=== PATIENT | male | born 1975 | race Caucasian/White ===

== ENCOUNTER 2023-06-05 21:03 | Emergency (ER) | payer MEDICAID, SELFPAY ==
[2023-06-05] VITALS (19 sets, daily range): BP systolic 85–111; BP diastolic 55–77; PULSE 91–157; RESP 10–36; O2SAT 89–98
--- NOTE | 2023-06-05 21:14 | ED_ITS ---
HPI - General Adult General Chief complaint: Overdose Stated complaint: OVERDOSE Time Seen by Provider: 06/05/23 21:06 History of Present Illness HPI narrative: patient called EMS after he used methamphetamine for the first time in several months and started freaking out . He was brought in by EMS acutely agitated and had difficulty following commands. He denied using any other drugs. He repeatedly told EMS I think I am dying . Related Data Allergies Allergy/AdvReac Type Severity Reaction Status Date / Time No Known Allergies Allergy Verified 06/05/23 21:31 PFSH PFS Social History Smoking status: Current every day smoker Exam Narrative Exam Narrative: Nurses notes and vital signs reviewed and patient is not hypoxic. afebrile General: agitated and moderately distressed. Skin: Sweaty. Warm skin. No rash. Head: Normocephalic, atraumatic. Neck: Supple, non-tender. Eye: Pupils are equal, round and EOMI. No scleral icterus. Ears, Nose, Mouth, and Throat: Oral mucosa is dry Cardiovascular: Tachcyardia Respiratory: No accessory muscle use or respiratory distress. Lungs are clear to auscultation, no wheezing, rales or rhonchi Chest Wall: no tenderness, crepitus or subcutaneous emphysema Back: No midline thoracic or lumbar vertebral tenderness. No CVA tenderness Musculoskeletal: normal ROM, no calf or popliteal tenderness, no lower extremity edema/swelling GI: Abdomen is soft, non-distended. Normal bowel sounds. No tenderness to palpation. No rebound, guarding, or rigidity noted. Neurological: A&O x4. No cranial nerve dysfunction observed. No truncal ataxia. Moves all extremities. Sensation intact. Psychiatric: Cooperative and interactive. Normal mood and affect. Constitutional Vital Signs, click to edit/add: Last Vital Signs Pulse 113 H 06/05/23 23:40 Resp 25 H 06/05/23 23:40 BP 85/61 L 06/05/23 23:30 Pulse Ox 94 L 06/05/23 21:40 O2 Del Method Room Air 06/05/23 21:21 Course Vital Signs Vital signs: Vital Signs Blood Pressure 93/77 06/05/23 21:04 Pulse Rate 113 H 06/05/23 23:40 Respiratory Rate 25 H 06/05/23 23:40 Blood Pressure 85/61 L 06/05/23 23:30 Pulse Oximetry 94 L 06/05/23 21:40 Oxygen Delivery Method Room Air 06/05/23 21:21 Medical Decision Making MDM Narrative Medical decision making narrative: Patient was placed on satellite project site monitor and EKG obtained. Blood drawn and sent for evaluation. peripheral IV established and the patient received Versed and Haldol - we are currently out of Ativan. Patient's HR decreased and his agitation subsided. He slept for about an hour. ON waking he was calm and cooperative. His parents came to the ED and were willing to take him home. Lab Data Lab results reviewed: Yes I reviewed the patient's lab results Labs: Lab Results 06/05/23 Range/Units 21:19 WBC 11.2 H (4.0-11.0) 10^3/uL RBC 5.33 (4.70-6.10) 10^6/uL Hgb 16.7 (14.0-18.0) g/dL Hct 47.8 (42.0-54.0) % MCV 89.7 (80.0-94.0) fL MCH 31.3 (25.9-34.0) pg MCHC 34.9 (29.9-35.2) g/dL RDW 13.9 (11.0-15.0) % Plt Count 282 (150-450) 10^3/uL MPV 10.4 (9.5-13.5) fL Neut % (Auto) 66.3 (43.0-75.0) % Lymph % (Auto) 21.4 (20.5-60.0) % [place] % (Auto) 11.4 (1.7-12.0) % Eos % (Auto) 0.1 L (0.9-7.0) % Baso % (Auto) 0.4 (0.2-2.0) % Neut # (Auto) 7.4 H (1.4-6.5) 10^3/uL Lymph # (Auto) 2.4 (1.2-3.8) 10^3/uL [place] # (Auto) 1.3 H (0.3-0.8) 10^3/uL Eos # (Auto) 0.0 (0.0-0.7) 10^3/uL Baso # (Auto) 0.0 (0.0-0.1) 10^3/uL Abs Immat Gran (auto) 0.05 H (0.00-0.03) 10^3/uL Imm/Tot Granulo (auto) 0.4 (0.0-0.5) % Sodium 133 L (136-145) mmol/L Potassium 3.8 (3.5-5.1) mmol/L Chloride 96 L (98-107) mmol/L Carbon Dioxide 20.0 L (21.0-32.0) mmol/L Anion Gap 20.8 BUN 24.0 H (7.0-18.0) mg/dL Creatinine 1.67 H (0.70-1.30) mg/dL Est GFR ( Amer) 54 L (>=60) Est GFR (Non-Af Amer) 44 L (>=60) BUN/Creatinine Ratio 14.4 Glucose 170 H (74-106) mg/dL Calcium 8.8 (8.5-10.1) mg/dL Total Bilirubin 0.9 (0.2-1.0) mg/dL AST 92 H (15-37) U/L ALT 329 H (16-63) U/L Alkaline Phosphatase 44 L (46-116) U/L Total Protein 8.1 (6.4-8.2) g/dL Albumin 3.9 (3.4-5.0) g/dL Globulin 4.2 g/dL Albumin/Globulin Ratio 0.9 ECG Data Interpretation: EKG interpretation: Emergency Department physician interpretation. Sinus tachcyardia at 146pm. Normal axis, non-specific T wave changes with undulating baseline which limits ability to evaluate for ST segment elevation. Discharge Plan Discharge Chief Complaint: Overdose Clinical Impression: Methamphetamine abuse Patient Disposition: Home, Self-Care Time of Disposition Decision: 23:47 Instructions: Methamphetamine Use Disorder (ED) Stand Alone Forms: Portal Instructions Referrals: Physician,Non-Staff, [Physician] - 1 week
--- NOTE | 2023-06-05 21:15 | ECG_ITS ---
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
[2023-06-05 21:29] LABS: Basophils Percent Auto 0.4 % (0.2-2.0); Eosinophils Percent Auto 0.1 % (0.9-7.0); Hematocrit 47.8 % (42.0-54.0); Hemoglobin 16.7 g/dL (14.0-18.0); Immature Granulocytes Abs Auto 0.05 10^3/uL (0.00-0.03); Immature Granulocytes Pct Auto 0.4 % (0.0-0.5); Lymphocytes Absolute Auto 2.4 10^3/uL (1.2-3.8); Lymphocytes Percent Auto 21.4 % (20.5-60.0); Mean Corpuscular HGB Conc 34.9 g/dL (29.9-35.2); Mean Corpuscular Hemoglobin 31.3 pg (25.9-34.0); Mean Corpuscular Volume 89.7 fL (80.0-94.0); Mean Platelet Volume 10.4 fL (9.5-13.5); Monocytes Absolute Auto 1.3 10^3/uL (0.3-0.8); Monocytes Percent Auto 11.4 % (1.7-12.0); Neutrophils Absolute Auto 7.4 10^3/uL (1.4-6.5); Neutrophils Percent Auto 66.3 % (43.0-75.0); Platelet Count 282 10^3/uL (150-450); Red Blood Count 5.33 10^6/uL (4.70-6.10); Red Cell Distribution Width 13.9 % (11.0-15.0); White Blood Count 11.2 10^3/uL (4.0-11.0)
[2023-06-05] MEDS: HALOPERIDOL LACTATE 5 MG/ML VIAL IM (21:45)
[2023-06-05] MEDS: 0.9 % SODIUM CHLORIDE 1,000 ML 999 ML IV (21:45)
[2023-06-05] MEDS: MIDAZOLAM HCL 5 MG/ML VIAL IV (21:46)
[2023-06-05 21:53] LABS: Alanine Aminotransferase 329 U/L (16-63); Albumin Globulin Ratio 0.9; Albumin Level 3.9 g/dL (3.4-5.0); Alkaline Phosphatase 44 U/L (46-116); Anion Gap 20.8; Aspartate Amino Transferase 92 U/L (15-37); BUN Creatinine Ratio 14.4; Bilirubin Total 0.9 mg/dL (0.2-1.0); Calcium 8.8 mg/dL (8.5-10.1); Chloride 96 mmol/L (98-107); Estimated GFR (African America 54 (>=60); Estimated GFR (Non-African Ame 44 (>=60); Globulin 4.2 g/dL; Glucose 170 mg/dL (74-106); Potassium 3.8 mmol/L (3.5-5.1); Sodium 133 mmol/L (136-145); Total Protein 8.1 g/dL (6.4-8.2)
== END 2023-06-06 00:04 | disposition home or self-care (01) ==
PROVIDERS: Emergency Provider Emergency Medicine; PCP Family Medicine
DX: F15.10 Other stimulant abuse, uncomplicated (principal); F17.210 Nicotine dependence, cigarettes, uncomplicated
CPT/HCPCS: 36415; 80053; 85025; 93005; 96372; 96374; 99285

== ENCOUNTER 2023-11-05 07:51 | Emergency (ER) | payer MEDICAID, SELFPAY ==
[2023-11-05 07:54] VITALS: BP 150/94; PULSE 82; RESP 20; TEMP 36.5; O2SAT 98; BMI 31.0
--- NOTE | 2023-11-05 08:04 | CT_ITS ---
The [address] [address] Patient Name: RADHIKA SIMONS MRN: [id number] date: 1975 Sex: M Assigned Patient Location: ER Current Patient Location: ED.MAIN Accession/Order Number: [id number] Exam Date: 11/05/2023 08:20 Report Date: 11/05/2023 08:36 At the request of: YAW JOEL Procedure: CT abdomen pelvis wo con EXAM: CT abdomen pelvis wo con HISTORY: Right flank pain, rule out kidney stone COMPARISON: None. TECHNIQUE: Axial CT images were obtained of the abdomen and pelvis without intravenous contrast. Multiplanar reconstructions were performed. ABDOMEN/PELVIS FINDINGS: Lower Chest: Unremarkable. Liver: Normal nonenhanced appearance and contour. Biliary/Gallbladder: Unremarkable. Pancreas: Unremarkable. Spleen: Unremarkable. Adrenal Glands: Unremarkable. Kidneys: There is an intermediate density exophytic lesion arising from the lower pole of the left kidney measuring 1.5 cm. A couple of punctate nonobstructing renal calculi are present in the left kidney. Gastrointestinal/Peritoneum: No acute abnormality. The appendix is unremarkable. No free air or free fluid. Vascular: Mild scattered atherosclerotic calcifications are present. Lymph Nodes: No enlarged lymph nodes by CT size criteria. Pelvic Organs: Unremarkable. Bladder: Unremarkable. Bones: No acute osseous abnormality. Soft tissues: Unremarkable. CT/CT abdomen pelvis wo con IMPRESSION: 1. No acute abnormality of the abdomen and pelvis. 2. Punctate nonobstructing calculi present in the left kidney. 3. Small intermediate density exophytic lesion arising from the lower pole the left kidney, which is indeterminate. A proteinaceous cyst or solid lesion is possible. Electronically authenticated by: YESICA JIMÉNEZ Date: 11/05/2023 08:36
--- NOTE | 2023-11-05 08:04 | ED.GENADUL1 ---
HPI - General Adult General Chief complaint: Back Pain/Injury Stated complaint: Flank Pain- Right Time Seen by Provider: 11/05/23 07:53 Source: patient Mode of arrival: walk-in Limitations: no limitations History of Present Illness HPI narrative: 48-year-old male presents for right flank pain. It has been intermittent for a few days. He has had kidney stones before and he is concerned it could be a kidney stone again. He is also been sitting for about 3 hours a day in a drug treatment class. He requests no narcotics. No dysuria or hematuria. The pain does not radiate and its moderate Related Data Home Medications ?Medication ?Instructions ?Recorded ?Confirmed naltrexone microspheres 380 mg 380 mg IM .qmonth 11/05/23 11/05/23 intramuscular suspension,extended release (Vivitrol) Allergies Allergy/AdvReac Type Severity Reaction Status Date / Time No Known Allergies Allergy Verified 06/05/23 21:31 Review of Systems ROS Narrative A ten point review of systems is negative except as noted above. PFSH PFSH Social History Smoking status: Current every day smoker Exam Narrative Exam Narrative: Nurses note and vital signs reviewed and patient is not hypoxic. General: The patient appears well and in no apparent distress. Patient is resting comfortably on cart. Skin: Warm, dry, no pallor noted. There is no rash noted. Head: Normocephalic, atraumatic Eye: Normal conjunctiva, no drainage Ears, Nose, Mouth, and Throat: oral mucosa is moist. Nares patent. Cardiovascular: Regular Rate and Rhythm Respiratory: Patient is in no distress, no accessory muscle use, lungs are clear to auscultation, no wheezing, rales or rhonchi Back: non-tender, no CVA tenderness bilaterally to percussion. No bruise or rash on his flank. GI: Soft and nontender Musculoskeletal: The patient has no evidence of calf tenderness, no pitting edema, symmetrical pulses noted bilaterally Neurological: A&O, normal speech Psychiatric: Cooperative Constitutional Vital Signs, click to edit/add: Last Vital Signs Temp 97.7 F 11/05/23 07:54 Pulse 82 11/05/23 07:54 Resp 20 11/05/23 07:54 BP 150/94 H 11/05/23 07:54 Pulse Ox 98 11/05/23 07:54 O2 Del Method Room Air 11/05/23 07:54 Course Vital Signs Vital signs: Vital Signs Temperature 97.7 F 11/05/23 07:54 Pulse Rate 82 11/05/23 07:54 Respiratory Rate 20 11/05/23 07:54 Blood Pressure 150/94 H 11/05/23 07:54 Pulse Oximetry 98 11/05/23 07:54 Oxygen Delivery Method Room Air 11/05/23 07:54 Temperature 97.7 F 11/05/23 07:54 Pulse Rate 82 11/05/23 07:54 Respiratory Rate 20 11/05/23 07:54 Blood Pressure 150/94 H 11/05/23 07:54 Pulse Oximetry 98 11/05/23 07:54 Oxygen Delivery Method Room Air 11/05/23 07:54 Medical Decision Making MDM Narrative Medical decision making narrative: CT scan shows punctate stone in the left kidney as well as a cyst and these findings were discussed with the patient. My clinical impression at this point is that this is muscular pain. Treatment diagnosis and follow-up were discussed with the patient. Differential Diagnosis Differential Diagnosis: Kidney stone, muscle pain Lab Data Lab results reviewed: Yes I reviewed the patient's lab results Labs: Lab Results 11/05/23 Range/Units 08:00 Urine Color Dk. yellow (YELLOW) Urine Clarity Clear (CLEAR) Urine pH 6.5 (5.0-9.0) Ur Specific [place] 1.025 (1.005-1.025) Urine Protein Negative (NEG/TRACE) mg/dL Urine Glucose (UA) Negative (NEGATIVE) mg/dL Urine Ketones Trace A (NEGATIVE) mg/dL Urine Occult Blood Negative (NEGATIVE) Urine Nitrite Negative (NEGATIVE) Urine Bilirubin Negative (NEGATIVE) Urine Urobilinogen 1.0 (0.2-1.0) EU/dL Ur Leukocyte Esterase Negative (NEGATIVE) Urine RBC None seen (0-2) #/HPF Urine WBC 0-2 A (NONE SEEN) #/HPF Ur Squamous Epith Cells Few A (NONE/RARE) #/LPF Urine Bacteria None seen (NONE SEEN) #/HPF Urine Mucus Large A (NONE SEEN) Imaging Data CT scan - abdomen: Radiologist's impression: ITS Impressions Abdomen/Pelvis CT 11/05/23 08:04 IMPRESSION: 1. No acute abnormality of the abdomen and pelvis. 2. Punctate nonobstructing calculi present in the left kidney. 3. Small intermediate density exophytic lesion arising from the lower pole the left kidney, which is indeterminate. A proteinaceous cyst or solid lesion is possible. Electronically authenticated by: YESICA JIMÉNEZ Date: 11/05/2023 08:36 Discharge Plan Discharge Stand Alone Forms: Portal Instructions Chief Complaint: Back Pain/Injury Clinical Impression: Acute right flank pain Patient Disposition: Home, Self-Care Time of Disposition Decision: 08:43 Condition: Good Mode of Transportation: Private Vehicle Prescriptions / Home Meds: No Action Vivitrol 380 mg suspension,extended rel recon 380 mg IM .qmonth Print Language: [place] Instructions: Flank Pain (ED) Referrals: DEMIAN ORTEGA [Primary Care Provider] - 1 week
--- OUTSIDE RECORDS SUMMARY | 2023-11-05 08:04 | XMS_ITS | CCD ---
Author Organization [facility] Care Team Providers Care Pulp Mixer Name Role Phone No, Physician Unavailable Unavailable NO FAMILY DOCTOR Unavailable Unavailable EMR, SPL Unavailable Unavailable NO FAMILY DOCTOR Unavailable Unavailable JUDY GRAHAM Unavailable Unavailable [facility] Unavailable Unavail able NO FAMILY DOCTOR Unavailable Unavailable TILA LOUISE Unavailable Unavailable UNKNOWN, PCP Unavailable Unavailable NO FAMILY DOCTOR Unavailable Unavailable ELENA WOOD Unavailable Unavailable [facility] Unavailable Unavail able NO, PHYSICIAN Unavailable Unavailable AB FONSECA Unavailable UnavailTY Cortez Unavailable Unavailable NO, PHYSICIAN Unavailable Unavailable SHANNON BARRIOS Primary Care Unavailable TY MOYER Admitting Unavailable TY MOYER Attending Unavailable ILIR CHANEY Consulting Unavailable TY MOYER Consulting Unavailable MISC, DOCTOR Admitting Unavailable MISC, DOCTOR Attending Unavailable Deacon Diane Primary Care Physician Deacon Diane Attending Unavailable Deacon Diane Attending Unavailable Deacon Diane Attending Unavailable Andry BYRNE Attending Unavailable Deacon Diane Admitting Unavailable Deacon Diane Attending Unavailable Deacon Diane Referring Unavailable Renuka AHN Attending Unavailable Nnamdi Fountain Attending Unavailab Nnamdi Taylor Admitting Unavailab le [facility], Services Primary Care Unavaila ble Allergies Allergy Classification Reported Allergen(s) Allergy Type Date of Onset Reaction(s) Facility (3 sources) QUEtiapine; Translations: [QUETIAPINE] Propensity to adverse reactions to drug 8 Palpitations [id number] Work Phone: (1 source) QUEtiapine Drug Allergy 4 [facility] Repository Medications Current Medications Medication Drug Class(es) Dates Sig (Normalized) Sig (Original) phenytoin sodium 100 mg extended release oral capsule (1 source) Anti-epileptic Agent Start: 09-14-2017 End: 10-14-2017 take 3 capsules by mouth once daily phenytoin (DILANTIN EXTENDED) 100 MG ER capsule Take 3 (three) capsules (300 mg total) by mouth daily. 90 capsule 0 09/14/2017 10/14/2017 Active polyethylene glycol 3350 111431 mg / potassium chloride 1480 mg / sodium bicarbonate 5720 mg / sodium chloride 04000 mg powder for oral solution (1 source) Osmotic Laxative Start: 03-22-2023 NuLYTELY [place] oral powder for reconstitution See Instructions, 1 EA, Refill(s) 0, Prior to colonoscopy., [facility]/pharmacy #[id number], 182, cm, 03/21/23 14:50:00 EDT, Height/Length Dosing, 108, kg, 03/21/23 14:50:00 EDT, Weight Dosing Start Date: 03/22/23 Status: Ordered Completed/Discontinued Medications Medication Drug Class(es) Dates Sig (Normalized) Sig (Original) fosphenytoin PE (CEREBYX) 1,000 mg in sodium chloride 0.9 % (NS) 100 mL IVPB 1,000 mg, Intravenous, at 600 mL/hr, Once, 09/14/17 at 2155, For 1 dose, Do not infuse > 150 mg PE/min. New Bag 09/14/2017 22:20 EST 1,000 mg 600 mL/hr (1 source) Start: 09-14-2017 End: 09-14-2017 take 1000 mg intravenous route every hour, then take 150 mg intravenous route fosphenytoin PE (CEREBYX) 1,000 mg in sodium chloride 0.9 % (NS) 100 mL IVPB 1,000 mg, Intravenous, at 600 mL/hr, Once, 09/14/17 at 2155, For 1 dose, Do not infuse > 150 mg PE/min. New Bag 09/14/2017 22:20 EST 1,000 mg 600 mL/hr Problems Active Problems Problem Classification Problem Date Documented Date Episodic/Chronic Anxiety disorders (4 sources) Panic disorder [episodic paroxysmal anxiety]; Translations: [Anxiety] Onset: 07-11-2017 03-07-2023 Chronic Attention-deficit, conduct, and disruptive behavior disorders (3 sources) Attention deficit hyperactivity disorder 03-07-2023 Chronic Epilepsy; convulsions (4 sources) Epilepsy, unspecified, not intractable, without status epilepticus; Translations: [EPILEPSY UNS NOT INTRACT W/O SE] Onset: 07-21-2018 Chronic Essential hypertension (4 sources) Essential (primary) hypertension; Translations: [Essential hypertension] Onset: 07-11-2017 03-07-2023 Chronic Headache; including migraine (3 sources) Headache 03-07-2023 Episodic Hepatitis (2 sources) Chronic hepatitis C 03-11-2023 Chronic Hepatitis (2 sources) Viral hepatitis C; Translations: [Unspecified viral hepatitis C without hepatic coma] Onset: 03-21-2023 03-07-2023 Episodic Mood disorders (6 sources) Bipolar I disorder; Translations: [Single episode of major depression in full remission] 03-07-2023 Chronic Residual codes; unclassified (3 sources) Sleep disorder 03-07-2023 Episodic Substance-related disorders (13 sources) Other psychoactive substance use, unspecified, uncomplicated; Translations: [Nicotine dependence, unspecified, uncomplicated] Onset: 04-10-2017 03-07-2023 Chronic Comment on above: Added secondary to d ocumentation in Social History. Substance-related disorders (1 source) Opioid dependence with withdrawal; Translations: [OPIOID DEPENDENCE WITH WITHDRAWAL] Onset: 08-16-2017 Unclassified (2 sources) Conversion disorder with seizures or convulsions; Translations: [Conversion disorder with seizures or convulsions] Onset: 11-02-2017 Chronic Unclassified (2 sources) Patient encounter status 03-21-2023 Past or Other Problems Problem Classification Problem Date Documented Date Episodic/Chronic Epilepsy; convulsions (3 sources) Unspecified convulsions; Translations: [UNSPECIFIED CONVULSIONS] Onset: 08-16-2017 Episodic Nausea and vomiting (1 source) Nausea with vomiting, unspecified; Translations: [NAUSEA WITH VOMITING, UNSPECIFIED] Onset: 08-16-2017 Episodic Nonspecific chest pain (2 sources) Chest pain, unspecified; Translations: [Other chest pain] Onset: 07-11-2017 Episodic Other aftercare (1 source) Other retirement (current) drug therapy; Translations: [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] Onset: 07-23-2018 Episodic Other connective tissue disease (2 sources) Other specified soft tissue disorders; Translations: [OTHER SPECIFIED SOFT TISSUE DISORDERS] Onset: 04-08-2017 Episodic Other screening for suspected conditions (not mental disorders or infectious disease) (4 sources) Culture positive for methicillin resistant Staphylococcus aureus; Translations: [Screening for malignant neoplasm of colon done] Onset: 04-10-2019 04-14-2019 Episodic Comment on above: MRSA scant amout L r ing finger wound 04/10/19 Skin and subcutaneous tissue infections (3 sources) Cellulitis of right lower limb; Translations: [Cutaneous abscess of right lower limb] Onset: 04-10-2017 Episodic Unclassified (3 sources) Procedure and treatment not carried out due to patient leaving prior to being seen by health care provider; Translations: [Patient's other noncompliance with medication regimen] Onset: 04-08-2017 Episodic Results Test Name Value Interpretation Reference Range Facility Longterm Documentson 07-29-2023 Longterm Documents Longterm Nurse Visit 14 day Health Appraisal Date of Appraisal: 07/28/23 Booked Date: 07/25/23 Court or Release Date: unknown Did inmate come from another facility: no PCP: Dr. Diane Specialist: none Pharmacy: none Have you ever had suicide attempts: no If yes, when was your last attempt and how: n/a Are you currently under the care of a practitioner for any reason: Wellness, hep c If yes, please explain: see above Date Receiving Screen Evaluation Form reviewed: 07/25/23 Date Suicide Prevention Health Form reviewed: 07/25/23 Has the sick call procedure has been explained: yes Does Inmate verbalize understanding: yes Do you or have you ever had any of the following: Recent Head Injury: no Persistent Headaches: no just sporadic Vertigo/Dizziness/ Fainting: no Stroke/TIA: no Seizure Disorder: no Eye/Vision Problems: wears glasses Ear/Nose/Throat Problems: no Dental Problems: ,issing a few Problems Breathing/ Asthma: no Genitourinary Problems: shy bladder per inmate Diabetes: no Gastrointestinal Issues: no High/Low Blood Pressure: no Heart Problems: no Recent Broken Bones or deformities: no Arthritis/ Joint Mobility Issues or Deformities: no Back/Neck Problems: back pain Skin Problems, Rashes, Open Wounds: no STDs (recent, past, or present): no Hepatitis Positive: Hep C HIV Positive: no Bleeding/Other Blood Disorder: no Body Infestation (Lice, Crabs, Scabies, Etc): no Do you have a history of: Violence towards others: no Being victimized: no Being sexually assaulted: no Sexually assaulting others: no Is this person obviously a higher risk for victimization or assault: o How does the patient identify him/herself in terms of gender: male SKIN: Warm, dry and intact Skin Color: WNL for ethnicity Turgor: WNL Bruises: no Wound/Lesions: no Rash: no Jaundice: no Edema: no Clarify and describe: n/a Is Physical Therapy needed: no CARDIOVASCULAR: Sinus Rythym Arrhythmia: no Chest Pain: no Clarify yes response: n/a RESPIRATORY: WNL Dyspnea: no Cough: no Clarify yes response: n/a [Mental Status Exam] TB Skin Test Have you ever had tuberculosis: no Have you ever had a positive TB skin test: no PPD given on: Location given: _ forearm Date vial opened: _ Lot number: _ Expiration date: _ PPD Comments: _ Inmate states they have had the following Immunizations: See immunizatiuon records Inmate tested positive for the following drugs: Methamphetamine (MET/mAMP) Ecstasy (MDMA) Marijuana (THC) Have you ever had seizures or other symptoms of withdrawal after stopping the use of alcohol/drugs? no Do you wish to attend AA Meetings? Yes Longterm Assessment 07/28/23 18:51:00 Longterm Assessment Entered On: 07/28/2023 18:53 EST Performed On: 07/28/2023 18:51 EST by Adela Reyes LPN Covid-19, MERS, Ebola Screen *Contact With Person With Highly Contagious Disease Like Ebola/MERS/COVID-19 AND Have One or More of the Symptoms Below : No *Travel to a Country With Wide-Spread Ebola/MERS/COVID-19 in the Past 21 Days AND Have One or More of the Symptoms Below : No Patient Reported Covid-19 Testing : No *Verify Droplet, Contact Precautions for Ebola (Reference for CDC) : N/A *Verify Airborne, Droplet Precautions for MERS/COVID-19 : N/A Adela Reyes LPN D - 07/28/2023 18:51 EST Summary Chief Complaint : Health appraisal Preferred Lab : [facility] Preferred Rad : [facility] Height in Inches : 73 in Height/Length Measured : 186 cm(Converted to: 6 ft 1 in, 73.23 in) Weight Measured : 88 kg(Converted to: 194 lb 0 Ounces, 194.007 lb) Body Mass Index Measured : 25.44 kg/m2 Change in Weight : -20 Weight in Pounds : 193.6 lb Ht/Wt Measurement Refused by Patient? : No Change in Weight (pounds) : -44 Systolic Blood Pressure : 138 mmHg Diastolic Blood Pressure : 78 mmHg Blood Pressure Location : Left arm Blood Pressure Position : Sitting O2 Sat Resting/Exertion Alpha : Resting Peripheral Pulse Rate : 112 bpm (HI) Respiratory Rate : 18 br/min SpO2 : 99 % Temperature Oral : 36.7 DegC(Converted to: 98.1 DegF) Pain Present : No actual or suspected pain Adela Reyes LPN D - 07/28/2023 18:51 EST Objective Data and Cognition Screening Cognition: Oriented To : Person, Place, Time Lvl of Consciousness : Alert Cognition: Speech : Rambling Cognition: Behavior : Cooperative Cognition: Hallucinations : N/A Cognition: Mood and Affect : Anxious Adela Reyes LPN D - 07/28/2023 18:51 EST Problem List/Past Medical History Ongoing ADHD Anxiety Bipolar 1 disorder Chronic hepatitis C without hepatic coma Headache Heroin use disorder, mild, in sustained remission, abuse Major depressive disorder with single episode, in full remission Methamphetamine abuse in remission MRSA (methicillin resistant staph aureus) culture positive Primary hypertension (more content not included)... Normal [facility] Provider Letteron 05-21-2023 Provider Letter (Inserted Image. Amelia ble to display) May 21, 2023 RADHIKA SIMONS [address] [place] [id number] : 1975 To Whom It May Concern, Please excuse above patient from work. Date of Illness: From: 05.13.2023 To: 05.22.2023 May Return to Work On: 05.23.2023 Sincerely, Dr. Deacon Diane MD Family [address] [address] Normal [facility] Ambulatory Visit Summaryon 0 05-16-2023 Ambulatory Visit Summary RADHIKA SIMONS :1975 Visit Date:05/16/2023 Ambulatory Visit Instructions Your Diagnosis COVID Your Care Team Attending Physician - Deacon Diane MD Primary Care Physician - Deacon Diane MD This Is Your Medications List Contact prescribing physician if questions or concerns polyethylene glycol 3350 with electrolytes (NuLYTELY [place] oral powder for reconstitution) Procedures Performed EGD (esophagogastroduodenoscopy) and closure of duodenal fistula, Excision of cyst, Excision of cyst. Discharge Vitals Heart Rate (Peripheral) 110 Respiratory Rate 22 Blood Pressure 110/80 Height 182 cm Weight 108 kg BMI 32.6 Medications What How Much When Instructions Unchanged polyethylene glycol 3350 with electrolytes (NuLYTELY [place] oral powder for reconstitution) See instructions Prior to colonoscopy. Contact prescribing physician if questions or concerns Allergies No Known Allergies Problems Ongoing - Any problem that you are currently receiving treatment for. ADHD Anxiety Bipolar 1 disorder Chronic hepatitis C without hepatic coma Headache Heroin use disorder, mild, in sustained remission, abuse Major depressive disorder with single episode, in full remission Methamphetamine abuse in remission MRSA (methicillin resistant staph aureus) culture positive Primary hypertension Screen for colon cancer Sleep disorder Smoker Normal [facility] Family Medicine Office/Clini c Noteon 05-16-2023 Family Medicine Office/Clinic Note HPI Staff Radhika is a 47 year old male presenting for follow up for htn and depression patient had called yesterday for a work excuse for 05/13-05/15 for fever, fatigue, runny nose, dry cough to be discussed at this visit per Dr Diane Still feels lousy, took to room and did covid test + results History of Present Illness - Pt here for follow up but has a positive covid test. - SOB, Fever Physical Exam Vitals & Measurements HR: 110(Peripheral) RR: 22 BP: 110/80 SpO2: 96% HT: 182 cm WT: 108 kg BMI: 32.6 General: alert, no acute distress ENMT: oral mucosa moist, Cardiovascular: Tachycardic normal peripheral perfusion Respiratory: Lungs CTA, respirations non labored increased RR Extremities: no deformity, no trauma Neurological: oriented x 4, LOC appropriate for age, CN II-XII intact, motor strength equal & normal bilaterally, speech normal Abdomen: Soft, Nontender, Non-distended, + BS Assessment/Plan 1. COVID (U07.1: COVID-19) - With Dizziness, Tachycardia, I will send to ER for hydration. - Precautions discussed in detail. - Will follow up after. Ordered: Rapid COVID POC [id number] Follow-up No qualifying data available Problem List/Past Medical History Ongoing ADHD Anxiety Bipolar 1 disorder Chronic hepatitis C without hepatic coma Headache Heroin use disorder, mild, in sustained remission, abuse Major depressive disorder with single episode, in full remission Methamphetamine abuse in remission MRSA (methicillin resistant staph aureus) culture positive Primary hypertension Screen for colon cancer Sleep disorder Smoker Historical No qualifying data Procedure/Surgical History EGD (esophagogastroduodenoscopy) and closure of duodenal fistula, Excision of cyst, Excision of cyst. Medications NuLYTELY [place] oral powder for reconstitution, See Instructions Allergies No Known Allergies Social History Alcohol - Denies Alcohol Use, 07/23/2018 Substance Abuse - High Risk, 07/23/2018 Past, Heroin, Methamphetamines, 04/10/2019 Heroin, Marijuana, Methamphetamines, 1-2 times per week, Ready to change: No., 07/23/2018 Tobacco - High Risk, 07/23/2018 10 or more cigarettes (1/2 pack or more)/day in last 30 days Tobacco Use:. Cigarettes, Ready to change: No. Household tobacco concerns: No., 03/21/2023 Cigarettes, 04/10/2019 Family History Hypertension: Father. Hypothyroidism: Mother. Immunizations Vaccine Date Status Comments influenza virus vaccine, inactivated 07/26/2022 Recorded SARS-CoV-2 (COVID-19) mRNA-1273 vaccine 07/06/2021 Recorded 2023-03-07: TPV11 SARS-CoV-2 (COVID-19) mRNA-1273 vaccine 12/07/2020 Recorded SARS-CoV-2 (COVID-19) mRNA-1273 vaccine 11/09/2020 Recorded hepatitis A adult vaccine 02/03/2019 Recorded pneumococcal 13-valent vaccine 08/19/2011 Recorded influenza virus vaccine, inactivated 05/07/2011 Recorded Lab Results Ambulatory Point of Care Results Rapid Covid POC: Positive (05/16/23 14:27:00) Normal [facility] Comment on above: Result Comment: Elec tronically Signed By: Morgan ANN, Deacon Fair.br\Date and Time Signed: 05/16/23 14:55 EDT Consent for Procedure/Surger yon 03-25-2023 Consent for Procedure/Surgery [id number]:127 Normal [facility] Insurance Correspondenceon 0 03-25-2023 Insurance Correspondence [id number]:127 Normal [facility] Gastroenterology Office/Clin ic Noteon 03-22-2023 Gastroenterology Office/Clinic Note Chief Complaint ref by morgan- hep C HPI Staff Patient is a 47 year old male who was referred by Morgan for Hepatitis C w/o coma. Hx of heroin, methamphetamine and marijuana use. Labs completed 03/07/23. No previous Fibro/EGD/imaging. History of Present Illness Radhika Simons is a 47-year-old white male who was referred to me by Dr. Field for chronic hepatitis C. He was diagnosed with hepatitis C in 2018 or 2019. He quit using drugs before he went to [facility]. He was getting treatment and counseling with [facility]. He last used street drugs in 05/2019. He has been tested for hepatitis B and HIV in 2019 when he went to [facility], and it was negative. Review of Systems PHQ Score Initial Depression Screen Score: 0 Constitutional: no fever, no chills, no sweats, no weakness Skin: no Jaundice, no rash, no lesions, no petechiae ENMT: no ear pain, no sore throat, no congestion, no hoarseness Respiratory: no shortness of breath, no cough, no orthopnea, no wheezing Cardiovascular: no chest pain, no palpitations, no edema Gastrointestinal: no nausea, no vomiting, no diarrhea, no constipation, no GI bleeding, no abdominal pain, no dysphagia, no bloating, no heartburn Genitourinary: no dysuria, no hematuria, no discharge, no pain Musculoskeletal: no back pain, no trauma Neurologic: no numbness, no sleeping problems Additional ROS info: Except as noted in the above Review of Systems and in the History of Present Illness all other systems have been reviewed and are negative or noncontributory. Physical Exam Vitals & Measurements T: 36.3 ?C(Temporal Artery) HR: 90(Peripheral) RR: 16 BP: 113/78 HT: 72 in HT: 182 cm WT: 108 kg WT: 237.6 lb BMI: 32.6 Constitutional: Appearance: well developed Skin: Inspection: no rashes, ulcers, icterus, or telangiectasias. Eyes: Conjunctivae/lids: normal conjunctivae and lids. ENMT: Hearing: within normal limits. Lips/Teeth/Gums: normal oral mucosa Neck: Neck: normal motion, central trachea Respiratory: Percussion: thorax normoresonant. Auscultation: normal breath sounds; no rubs, wheezes, rale or rhonchi. Cardiovascular: Auscultation: normal rhythm, S1 and S2; no rubs, murmurs, or gallop. Peripheral: no edema Gastrointestinal/Abdomen: Abdomen: normal consistency and bowel sounds; no tenderness or masses. Liver/Spleen: normal size and consistency, not palpable. Rectal: deferred Musculoskeletal: Gait/Station: normal gait Assessment/Plan 1. Hepatitis C (B19.20: Unspecified viral hepatitis C without hepatic coma) The patient required hepatitis C through IV drugs. He has been clean since 2019. I will proceed with hepatitis C viral load genotype. We will rule out hepatitis B and HIV. We will assess fibrosis score with a FibroScan. 2. Screen for colon cancer (Z12.11: Encounter for screening for malignant neoplasm of colon) We will proceed with a screening colonoscopy. Portions of this record may have been created with voice recognition artificial intelligence software, specifically [employer], [employer] and or [employer]. Substitutions may have occurred voice recognition and artificial intelligence software. ATTESTATION: Documentation services were performed after patient or guardian consented to allow [employer] to record this visit. SURYA medication specialist and provider reviewed before signing. SURYA: Yaritza Bianes. Follow-up No qualifying data available Problem List/Past Medical History Ongoing ADHD Anxiety Bipolar 1 disorder Chronic hepatitis C without hepatic coma Headache Heroin use disorder, mild, in sustained remission, abuse Major depressive disorder with single episode, in full remission Methamphetamine abuse in remission MRSA (methicillin resistant staph aureus) culture positive Primary hypertension Screen for colon cancer Sleep disorder Smoker Historical No qualifying data Procedure/Surgical History EGD (esophagogastroduodenoscopy) and closure of duodenal fistula, Excision of cyst, Excision of cyst. Medications No active medications Allergies No Known Allergies Social History Alcohol - Denies Alcohol Use, 07/23/2018 Substance Abuse - High Risk, 07/23/2018 Past, Heroin, Methamphetamines, 04/10/2019 Heroin, Marijuana, Methamphetamines, 1-2 times per week, Ready to change: No., 07/23/2018 Tobacco - High Risk, 07/23/2018 10 or more cigarettes (1/2 pack or more)/day in last 30 days Tobacco Use:. Cigarettes, Ready to change: No. Household tobacco concerns: No., 03/21/2023 Cigarettes, 04/10/2019 Family History Hypertension: Father. Hypothyroidism: Mother. Immunizations Vaccine Date Status Comments influenza virus vaccine, inactivated 07/26/2022 Recorded SARS-CoV-2 (COVID-19) mRNA-1273 vaccine 07/06/2021 Recorded 2023-03-07: TPV11 SARS-CoV-2 (COVID-19) mRNA-1273 vaccine 12/07/2020 Recorded SARS-CoV-2 (COVID-19) mRNA-1273 vaccine 11/09/2020 Recorded hepatitis A adult vaccine 02/03/2019 Recorded (more content not included)... Normal [facility] Comment on above: Result Comment: Elec tronically Signed By: Yaritza Reyes\.br\Date and Time Signed: 03/21/23 19:33 EDT\.br\Electronically Co-Signed By: Renuka AHN MD\.br\Date and Time Co-Signed: 03/22/23 13:33 EDT Ambulatory Visit Summaryon 0 03-21-2023 Ambulatory Visit Summary RADHIKA SIMONS :1975 Visit Date:03/21/2023 Ambulatory Visit Instructions Your Diagnosis Hepatitis C Screen for colon cancer Your Care Team Attending Physician - Renuka AHN MD Primary Care Physician - Deacon Diane MD Referring Physician - Deacon Diane MD Procedures Performed EGD (esophagogastroduodenoscopy) and closure of duodenal fistula, Excision of cyst, Excision of cyst. Discharge Vitals Temperature (Temporal Artery) 36.3 ?C Heart Rate (Peripheral) 90 Respiratory Rate 16 Blood Pressure 113/78 Height 182 cm Height 72 in Weight 108 kg Weight 237.6 lb BMI 32.6 What to do next Scheduled Follow-Up Appointments Saturday 9:00 AM EDT With: Where: [facility] 2022 8:40 AM EDT With: Morgan ANN, Deacon Singh Where: [facility] .HCV RT-PCR, Quant (Non-Grap h)on 03-12-2023 Diagnostic impression Molgen Kahlil (Unsp spec) [Interp] Comment Invalid Interpretation Code [facility] Comment on above: Result Comment: Posi tive HCV antibody screen with the presence of HCV RNA is consistent with active infection. Performed at: [facility] [id number] MD Anish De La Rosa Performed By: #### 2 [id number] ####[facility] [id number] [place] [address] HCV RNA NEFTALI+probe [Log units/Vol] 6.859 Invalid Interpretation Code [facility] Comment on above: Performed By: #### 2 [id number] ####[facility] [id number] [place] [address] HCV RNA NEFTALI+probe Qn [id number] International_Unit/mL Invalid Interpretation Code [facility] Comment on above: Performed By: #### 2 [id number] ####[facility] [id number] [place] [address] Reference Lab Test Reference Range Comment Invalid Interpretation Code [facility] Comment on above: Result Comment: The quantitative range of this assay is 15 IU/mL to 100 million IU/mL. Performed By: #### 2 226162, [id number], [id number], 8290499, 85150139, 5916890 ####[facility] [address] [place] [address] HCV Antibody RFX to Quant PC Damon 03-12-2023 HCV IgG IA Ql Reactive Abnormal Non Reactive [facility] Comment on above: Order Comment: Test requires 2 tubes, sent 1 SST and 1 EDTA Plasma pour-off Result Comment: Perf ormed at: [facility] [address] [id number] PhD Remy Adams Performed By: #### 2 378513, [id number], [id number], 2316340, 40045943, 4011222 ####[facility] [address] [place] [address] Family Medicine Office/Clini c Noteon 03-11-2023 Family Medicine Office/Clinic Note Chief Complaint esablish care HPI Staff Radhika is a 47 year old male patient presenting to the office to establish care. Establish Care: History: Hep C, depression Any previous diagnosis: History of seeing any specialist: neurologist in past ? aneurysm When was your last doctors visit: just out of fdc, was monitored there Last provider: Any recent labs: in the fdc jair blood every 6 months ayan: 14 Health Maintenance UTD: Colonoscopy: none PSA: never covid UTD Acute: Current issues/complaints: lots to discuss, just out of fdc past drug abuse and he's clean and sober wants to get his health in order. Found small anuerysm in back of head, been monitoring with scan every 6 months. Lots of anxiety, wearing an ankle monitor History of Present Illness Radhika Simons is a 47-year-old male who presents today to establish care. The patient states that he recently came out from fdc. He states that the last 8 years in his life, he has been addicted to drugs and alcohol. He has used heroin and methamphetamine before. Currently, he has been sobered for 4 years since he was in fdc. He was put on Vivitrol. He contracted hepatitis C. He undergone liver scans, ultrasounds, and urine tests for the insurance company before he got medicated, to show them that he was being serious. He was sentenced to fdc. He was monitored in fdc to make sure his levels did not go up. He states that he is doing great. He just got his own place. He got a job at [employer]. He loves it. He was not thinking about doing it when he was in fdc because being there was enough to make him not want to go back. He got . That was one of the reasons he gave up on life. He is happy and blessed to be here right now because there are a lot of people out here that are not making it. He has a sponsor. He goes to the [employer] 3 times a month until 04/2023. He is limited to what he can do, but he is allowed to go up there. He is going up there tonight to see a counselor at [facility]. He reports he has bumps on his stomach but does not hurt. He has had a history of cysts in his skin before. He had them removed from his face. His blood pressure is slightly elevated today. He thinks this is due to being anxious. He did not smoke cigarettes the whole time he was in fdc but when he came back from fdc, he was smoking more than he ever has. He smokes an average of 1 pack a day. He has gained a lot of weight. Before he got a job and started getting active again, he was sitting at home binge watching any channel. He also stopped drinking coffee when he was in fdc, but when he got home, he drank too much coffee again. Physical Exam Vitals & Measurements T: 37.0 ?C(Oral) HR: 90(Peripheral) RR: 16 BP: 142/90 SpO2: 95% HT: 72 in HT: 182.88 cm WT: 112.2 kg WT: 246.84 lb BMI: 33.55 General: alert, no acute distress ENMT: oral mucosa moist, no pharyngeal erythema or exudate Cardiovascular: regular rate and rhythm, normal peripheral perfusion Respiratory: Lungs CTA, respirations non labored Extremities: no deformity, no trauma Neurological: oriented x 4, LOC appropriate for age, CN II-XII intact, motor strength equal & normal bilaterally, speech normal Assessment/Plan 1. Primary hypertension (I10: Essential (primary) hypertension) The patient has never been diagnosed with this before. I do believe he is working towards his diagnosis, but we will recheck him in 2 to 3 weeks. If his blood pressure is still elevated, we will start medication at that time. 2. Major depressive disorder with single episode, in full remission (F32.5: Major depressive disorder, single episode, in full remission) The patient is doing very well since being out of fdc. The patient is on no medication at this time. His AYAN is elevated at 14. Otherwise, he is doing well. We will start addressing this moving forward. 3. BMI 33.0-33.9,adult (Z68.33: Body mass index [BMI] 33.0-33.9, adult) BMI education given. 4. Class 1 obesity due to excess calories in adult (E66.09: Other obesity due to excess calories) As above. 5. Smoker (F17.200: Nicotine dependence, unspecified, uncomplicated) Encouraged the patient to slowly cut down on his smoking. His goal is to be less than half a pack in the next 2 to 3 weeks. If the patient is struggling, we will look at other medications to help him with this. 6. Heroin use disorder, mild, in sustained remission, abuse (F11.11: Opioid abuse, in remission) Encouraged that the patient is in remission. We will continue to have the patient in helping the patient stays in remission. 7. Methamphetamine abuse in remission (F15.11: Other stimulant abuse, in remission) Encouraged the patient to continue to be in remission. If he needs any help, we will continue to help him with this. 8. Hepatitis C infection (B19.20: Unspecified viral hepatitis C without hepatic coma) We are going to recheck his hepatitis C antibodies with reflex to PCR. We (more content not included)... Normal [facility] Comment on above: Result Comment: Elec tronically Signed By: Deacon Daine MD\.br\Date and Time Signed: 03/11/23 11:03 EDT\.br\Electronically Co-Signed By: Ivana Gandara\.br\Date and Time Co-Signed: 03/07/23 14:11 EDT Ambulatory Visit Summaryon 0 03-07-2023 Ambulatory Visit Summary RADHIKA SIMONS :1975 Visit Date:03/07/2023 Ambulatory Visit Instructions Your Diagnosis Primary hypertension Major depressive disorder with single episode, in full remission BMI 33.0-33.9,adult Class 1 obesity due to excess calories in adult Smoker Heroin use disorder, mild, in sustained remission, abuse Methamphetamine abuse in remission Hepatitis C infection Your Care Team Attending Physician - Deacon Diane MD Primary Care Physician - Deacon Diane MD Procedures Performed EGD (esophagogastroduodenoscopy) and closure of duodenal fistula, Excision of cyst, Excision of cyst. Discharge Vitals Temperature (Oral) 37.0 ?C Heart Rate (Peripheral) 90 Respiratory Rate 16 Blood Pressure 142/90 Height 182.88 cm Height 72 in Weight 112.2 kg Weight 246.84 lb BMI 33.55 What to do next Scheduled Follow-Up Appointments 2022 8:40 AM EDT With: Deacon Diane MD Where: [facility] Normal [facility] Auto Diffon 03-07-2023 Basophils/100 WBC (Bld) 0.6 % Normal 0.0-2.0 [facility] Comment on above: Order Comment: Order Added by Discern Expert. Performed By: #### 2 706477, [id number], [id number], 3332249, 27907194, 5878822 ####[facility] [address] [place] [address] Basophils/Leukocyte s Auto (Bld) [Pure # fraction] 0.0 E9/L Normal 0.0-0.2 [facility] Comment on above: Order Comment: Order Added by Discern Expert. Performed By: #### 2 771246, [id number], 7338536098, 6379398, 63134205, 0591110 ####[facility] [address] [place] [address] Eosinophils/100 WBC (Bld) 0.0 % Normal 0.0-8.0 [facility] Comment on above: Order Comment: Order Added by Discern Expert. Performed By: #### 2 550031, [id number], 8807026625, 8146802, 00952513, 1344593 ####[facility] [address] [place] [address] Eosinophils/Leukocy branden Auto (Bld) [Pure # fraction] 0.0 E9/L Normal 0.0-0.5 [facility] Comment on above: Order Comment: Order Added by Discern Expert. Performed By: #### 2 671688, [id number], 0923856241, 0882676, 15165669, 5603942 ####[address] [address] Lymphocytes/100 WBC (Bld) 27.2 % Normal 14.0-50.0 [facility] Comment on above: Order Comment: Order Added by Discern Expert. Performed By: #### 2 449478, 2940628376, 8576614673, 5552754, 04872467, 3161660 ####[address] [address] Lymphocytes/Leukocy branden Auto (Bld) [Pure # fraction] 1.7 E9/L Normal 1.0-4.0 [facility] Comment on above: Order Comment: Order Added by Discern Expert. Performed By: #### 2 880799, 4118350926, 2453229929, 4003199, 56225316, 4241404 ####[address] [address] Monocytes/100 WBC (Bld) 8.5 % Normal 4.0-14.0 [facility] Comment on above: Order Comment: Order Added by Discern Expert. Performed By: #### 2 852524, 8644280852, 7178549587, 7451184, 01886665, 9793934 ####[address] [address] Monocytes/Leukocyte s Auto (Bld) [Pure # fraction] 0.5 E9/L Normal 0.2-1.0 [facility] Comment on above: Order Comment: Order Added by Discern Expert. Performed By: #### 2 856458, [id number], 9706023155, 3751316, 77662626, 6803397 ####[address] [place] [address] Neutrophils/100 WBC (Bld) 63.7 % Normal 36.0-75.0 [facility] Comment on above: Order Comment: Order Added by Discern Expert. Performed By: #### 2 774263, 7776841604, 4378091829, 3847315, 16571223, 7695213 ####[address] [address] Neutrophils/Leukocy branden Auto (Bld) [Pure # fraction] 4.1 E9/L Normal 2.0-7.5 [facility] Comment on above: Order Comment: Order Added by Discern Expert. Performed By: #### 2 783250, 4274486805, 5444659414, 8801270, 92710062, 6342985 ####[address] [address] CBC w/ Auto Diffon 3 Erythrocyte distribution width (RBC) [Ratio] 14.5 % High 10.9-14.2 [facility] Comment on above: Performed By: #### 2 672267, 0688004822, 7554179221, 2309696, 96432518, 8235594 ####[address] [address] Hematocrit (Bld) [Volume fraction] 47.6 % Normal 37.7-49.0 [facility] Comment on above: Performed By: #### 2 583132, 7868863757, 4674074573, 3518980, 01434013, 2513349 ####[address] [address] Hemoglobin (Bld) [Mass/Vol] 16.0 g/dL Normal 13.5-17.5 [facility] Comment on above: Performed By: #### 2 156711, 4819336501, 4011253579, 7788495, 35138528, 8825849 ####[address] [address] MCH (RBC) [Entitic mass] 30.6 pg Normal 27.0-34.0 [facility] Comment on above: Performed By: #### 2 694629, 5026260016, 5578890291, 1877443, 31343096, 8194171 ####[facility] [address] [place] [address] MCHC (RBC) [Mass/Vol] 33.7 g/dL Normal 31.4-36.0 [facility] Comment on above: Performed By: #### 2 499309, 8458182042, 3195932630, 5690686, 15362711, 3506206 ####[address] [address] MCV (RBC) [Entitic vol] 90.9 fL Normal 80.0-100.0 [facility] Comment on above: Performed By: #### 2 025989, 4252983340, 8509749166, 4741194, 70317760, 0619408 ####[address] [address] Platelet mean volume (Bld) [Entitic vol] 9.3 fL Normal 6.4-10.8 [facility] Comment on above: Performed By: #### 2 506822, 9855970058, 0893064027, 3819447, 34071299, 0792839 ####[address] [address] Platelets (Bld) [#/Vol] 224.0 E9/L Normal 150.0-500.0 [facility] Comment on above: Performed By: #### 2 745156, 4622125618, 9021928826, 5496478, 89144285, 7478084 ####[address] [address] RBC (Bld) [#/Vol] 5.2 E12/L Normal 4.3-5.9 [facility] Comment on above: Performed By: #### 2 666435, 7383310342, 8853002729, 5250598, 85932062, 8302904 ####[facility] [address] [place] [address] WBC corrected for nucl RBC Auto (Bld) [#/Vol] 6.4 E9/L Normal 4.0-11.0 [facility] Comment on above: Performed By: #### 2 379528, 0088368451, 1908858852, 1829011, 41048893, 0745547 ####[facility] [address] [place] [address] CHEMISTRYOrdered By: SYSTEM SYSTEM on 03-07-2023 Albumin [Mass/Vol] 4.3 g/dL Normal 3.3 - 5.0 gm/dL [facility] Albumin/Globulin [Mass ratio] 1.4 {ratio} Normal 1.1 - 2.2 [facility] ALP [Catalytic activity/Vol] 31 [iU]/d Normal 21 - 98 Int._Unit/L [facility] ALT No additional P-5'-P [Catalytic activity/Vol] 113 [iU]/d High 6 - 46 Int._Unit/L [facility] Anion gap [Moles/Vol] 14 mmol/L Normal 6 - 16 mEq/L [facility] AST [Catalytic activity/Vol] 55 [iU]/d High 5 - 43 Int._Unit/L [facility] Bilirubin [Mass/Vol] 0.9 mg/dL Normal 0.0 - 1.1 mg/dL [facility] Calcium [Mass/Vol] 8.9 mg/dL Normal 8.9 - 11. 1 mg/dL [facility] Chloride [Moles/Vol] 104 mmol/L Normal 101 - 111 mmol/L [facility] CO2 [Moles/Vol] 22 mmol/L Normal 21 - 31 mmol/L [facility] Creatinine [Mass/Vol] 1.0 mg/dL Normal 0.5 - 1.3 mg/dL [facility] GFR/1.73 sq M.predicted among non-blacks MDRD (S/P/Bld) [Vol rate/Area] 93 mL/min/1.73 m2 Normal >=59mL/min/1 .73 m2 [facility] Chem S Globulin (S) [Mass/Vol] 3.1 g/dL Normal 1.4 - 4.0 gm/dL [facility] Remisol Glucose [Mass/Vol] 89 mg/dL Normal 55 - 199 mg/dL [facility] Remisol Potassium [Moles/Vol] 3.9 mmol/L Normal 3.5 - 5.3 mmol/L [facility] Remisol Protein [Mass/Vol] 7.4 g/dL Normal 6.0 - 7.8 gm/dL [facility] Remisol Sodium [Moles/Vol] 136 mmol/L Normal 135 - 145 mmol/L [facility] Remisol Urea nitrogen [Mass/Vol] 16 mg/dL Normal 5 - 21 mg/dL [facility] Remisol Urea nitrogen/Creatinine [Mass ratio] 16 mg/mg Normal 10 - [facility] Remisol CMPon 03-07-2023 Albumin [Mass/Vol] 4.3 g/dL Normal 3.3-5.0 [facility] Comment on above: Performed By: #### 2 358722, 5160332481, 8760368032, 7850989, 16679741, 2193585 ####[facility] [address] [place] [address] Albumin/Globulin (S) [Mass conc ratio] 1.4 Normal 1.1-2.2 [facility] Comment on above: Performed By: #### 2 862866, 1458159951, 5061033461, 2432950, 40378393, 1458701 ####[facility] [address] [place] [address] ALP [Catalytic activity/Vol] 31 Int._Unit/L Normal 21-98 [facility] Comment on above: Performed By: #### 2 675120, 6901473991, 3628226495, 7111457, 31064375, 5353228 ####[facility] [address] [place] [address] ALT No additional P-5'-P [Catalytic activity/Vol] 113 Int._Unit/L High 6-46 [facility] Comment on above: Performed By: #### 2 722376, 2963446686, 9025239040, 3582840, 04763848, 6216838 ####[facility] [address] [place] [address] Anion gap [Moles/Vol] 14 mmol/L Normal 6-16 [facility] Comment on above: Performed By: #### 2 533726, 5188592357, 4331231940, 5902467, 69215285, 9772942 ####[facility] [address] [place] [address] AST [Catalytic activity/Vol] 55 Int._Unit/L High 5-43 [facility] Comment on above: Performed By: #### 2 277182, 4702922612, 7721361602, 7941442, 55383991, 9991766 ####[facility] [address] [place] [address] Bilirubin [Mass/Vol] 0.9 mg/dL Normal 0.0-1.1 [facility] Comment on above: Performed By: #### 2 117730, 1913973769, 8909646256, 6453054, 03192878, 0591295 ####[facility] [address] [place] [address] Calcium [Mass/Vol] 8.9 mg/dL Normal 8.9-11.1 [facility] Comment on above: Performed By: #### 2 602172, 2127838393, 9125773927, 0427461, 32805015, 6491515 ####[facility] [address] [place] [address] Chloride [Moles/Vol] 104 mmol/L Normal 101-111 [facility] Comment on above: Performed By: #### 2 711756, 1025400842, 4613229088, 8227832, 19903908, 7358240 ####[facility] [address] [place] [address] CO2 [Moles/Vol] 22 mmol/L Normal 21-31 [facility] Comment on above: Performed By: #### 2 337577, 0289692546, 9050727130, 3773105, 50641398, 0102107 ####[facility] [address] [place] [address] Creatinine [Mass/Vol] 1.0 mg/dL Normal 0.5-1.3 [facility] Comment on above: Performed By: #### 2 235107, 7903237558, 7345796927, 7318121, 14514786, 9357720 ####[facility] [address] [place] [address] Globulin (S) [Mass/Vol] 3.1 g/dL Normal 1.4-4.0 [facility] Comment on above: Performed By: #### 2 104304, 9144033901, 6204206861, 1056106, 26871036, 0056105 ####[facility] [address] [place] [address] Glucose [Mass/Vol] 89 mg/dL Normal 55-199 [facility] Comment on above: Result Comment: If t his glucose result represents a fasting glucose, interpretation should refer to the following reference range: 55-99 mg/dL Performed By: #### 2 620522, 5332876172, 8784133353, 9454046, 79015367, 9328109 ####[facility] [address] [place] [address] Potassium [Moles/Vol] 3.9 mmol/L Normal 3.5-5.3 [facility] Comment on above: Performed By: #### 2 429489, 5325263921, 9182970607, 8232876, 95549772, 8700462 ####[facility] [address] [place] [address] Protein [Mass/Vol] 7.4 g/dL Normal 6.0-7.8 [facility] Comment on above: Performed By: #### 2 706723, 0983962750, 0500832361, 3549679, 57676788, 9395821 ####[facility] [address] [place] [address] Sodium [Moles/Vol] 136 mmol/L Normal 135-145 [facility] Comment on above: Performed By: #### 2 177074, 0544649098, 4512884368, 6697381, 54478637, 4164940 ####[facility] [address] [place] [address] Urea nitrogen [Mass/Vol] 16 mg/dL Normal 5-21 [facility] Comment on above: Performed By: #### 2 531041, 7522281062, 6509850689, 6232924, 13644461, 5503365 ####[facility] [address] [place] [address] Urea nitrogen/Creatinine [Mass ratio] 16 No Units Normal 10-20 [facility] Comment on above: Performed By: #### 2 363984, 9875272226, 7303234930, 8660590, 33245112, 5686548 ####[facility] [address] [place] [address] Formson 03-07-2023 Forms [id number]:127 Normal [facility] HEMATOLOGYOrdered By: SYSTEM SYSTEM on 03-07-2023 Basophils/100 WBC (Bld) 0.6 % Normal 0.0 - 2.0 % [facility] HemeAutoSS Basophils/Leukocyte s Auto (Bld) [Pure # fraction] 0.0 E9/L Normal 0.0 - 0.2 E9/L [facility] HemeAutoSS Eosinophils/100 WBC (Bld) 0.0 % Normal 0.0 - 8.0 % [facility] HemeAutoSS Eosinophils/Leukocy branden Auto (Bld) [Pure # fraction] 0.0 E9/L Normal 0.0 - 0.5 E9/L [facility] HemeAutoSS Lymphocytes/100 WBC (Bld) 27.2 % Normal 14.0 - 50.0 % [facility] HemeAutoSS Lymphocytes/Leukocy branden Auto (Bld) [Pure # fraction] 1.7 E9/L Normal 1.0 - 4.0 E9/L [facility] HemeAutoSS Monocytes/100 WBC (Bld) 8.5 % Normal 4.0 - 14.0 % [facility] HemeAutoSS Monocytes/Leukocyte s Auto (Bld) [Pure # fraction] 0.5 E9/L Normal 0.2 - 1.0 E9/L [facility] HemeAutoSS Neutrophils/100 WBC (Bld) 63.7 % Normal 36.0 - 75.0 % [facility] HemeAutoSS Neutrophils/Leukocy branden Auto (Bld) [Pure # fraction] 4.1 E9/L Normal 2.0 - 7.5 E9/L [facility] HemeAutoSS HEMATOLOGYOrdered By: July Rosales on 03-07-2023 Erythrocyte distribution width (RBC) [Ratio] 14.5 % High 10.9 - 14.2 % [facility] HemeAutoSS Hematocrit (Bld) [Volume fraction] 47.6 % Normal 37.7 - 49.0 % [facility] HemeAutoSS Hemoglobin (Bld) [Mass/Vol] 16.0 g/dL Normal 13.5 - 17.5 gm/dL [facility] HemeAutoSS MCH (RBC) [Entitic mass] 30.6 pg Normal 27.0 - 34.0 pg [facility] HemeAutoSS MCHC (RBC) [Mass/Vol] 33.7 g/dL Normal 31.4 - 36.0 gm/dL [facility] HemeAutoSS MCV (RBC) [Entitic vol] 90.9 fL Normal 80.0 - 100.0 fL [facility] HemeAutoSS Platelet mean volume (Bld) [Entitic vol] 9.3 fL Normal 6.4 - 10.8 fL [facility] HemeAutoSS Platelets (Bld) [#/Vol] 224.0 E9/L Normal 150.0 - 500.0 E9/L [facility] HemeAutoSS RBC (Bld) [#/Vol] 5.2 E12/L Normal 4.3 - 5.9 E12/L [facility] HemeAutoSS WBC corrected for nucl RBC Auto (Bld) [#/Vol] 6.4 E9/L Normal 4.0 - 11.0 E9/L [facility] HemeAutoSS eGFRon 03-07-2023 GFR/1.73 sq M.predicted among non-blacks MDRD (S/P/Bld) [Vol rate/Area] 93 mL/min/1.73 m2 Normal >=59 [facility] Comment on above: Order Comment: Order added by Discern Expert. Result Comment: Senior Python Developer lb kidney disease could be indicated at eGFR's of less than 60 mL/min/1.73m2. Kidney failure is indicated at less than 15 mL/min/1.73m2. Performed By: #### 2 923665, [id number], 5821284083, 3956634, 55504370, 3394122 ####[facility] [address] [place] [address] Consenton 01-28-2023 Consent [id number]:127 Normal [facility] Registrationon 01-28-2023 Registration [id number]:127 Normal [facility] ACETAMINOPHENon 07-21-2018 Acetaminophen [Mass/Vol] <1.0 Critically low 10.1-30.0 [facility] Comment on above: Performed By: #### A CET #### [facility] [address] [place] [address] Yecenia Ruba CBC AUTO DIFFon 07-21-2018 Basophils (Bld) [#/Vol] 0.1 103/ul Normal 0.0-0.1 [facility] Comment on above: Performed By: #### C BC #### [facility] [address] [place] [address] Yecenia Ruba Basophils/100 WBC (Bld) 0.4 % Normal 0.2-2.0 [facility] Comment on above: Performed By: #### C BC #### [facility] [address] [place] [address] Yecenia Ruba Eosinophils (Bld) [#/Vol] 0.0 103/ul Normal 0.0-0.7 [facility] Comment on above: Performed By: #### C BC #### [facility] [address] [place] [address] Yecenia Ruba Eosinophils/100 WBC (Bld) 0.0 % Critically low 0.9-7.0 [facility] Comment on above: Performed By: #### C BC #### [facility] [address] [place] [address] Yeceniakeira Yeh Erythrocyte distribution width (RBC) [Ratio] 15.9 % Critically high 11.0-15.0 [facility] Comment on above: Performed By: #### C BC #### [facility] [address] [place] [address] Yecenia Ruba Hematocrit (Bld) [Volume fraction] 42.2 % Normal 42.0-54.0 [facility] Comment on above: Performed By: #### C BC #### [facility] [address] [place] [address] Yecenia Ruba Hemoglobin (Bld) [Mass/Vol] 14.5 g/dL Normal 14.0-18.0 [facility] Comment on above: Performed By: #### C BC #### [facility] [address] [place] [address] Yecenia Ruba IG # 0.06 10e3/ul Critically high 0.00-0.03 [facility] Comment on above: Performed By: #### C BC #### [facility] [address] [place] [address] Yecenia Ruba IG % 0.5 % Normal 0.0-0.5 [facility] Comment on above: Performed By: #### C BC #### [facility] [address] [place] [address] Yecenia Ruba Lymphocytes (Bld) [#/Vol] 2.4 103/ul Normal 1.2-3.8 [facility] Comment on above: Performed By: #### C BC #### [facility] [address] [place] [address] Yecenia Ruba Lymphocytes/100 WBC (Bld) 19.2 % Critically low 20.5-60.0 [facility] Comment on above: Performed By: #### C BC #### [facility] [address] [place] [address] Yecenia Ruba MANUAL DIFF REQ NO Normal [facility] Comment on above: Performed By: #### C BC #### [facility] [address] [place], [place] [address] Yecenia Yeh MCH (RBC) [Entitic mass] 29.4 pg Normal 25.9-34.0 [facility] Comment on above: Performed By: #### C BC #### [facility] [address] [place], [place] [address] Yeceniakeira Yeh MCHC (RBC) [Mass/Vol] 34.4 g/dL Normal 29.9-35.2 [facility] Comment on above: Performed By: #### C BC #### [facility] [address] [place], [place] [address] Yecenia Yeh MCV (RBC) [Entitic vol] 85.6 fL Normal 80.0-94.0 [facility] Comment on above: Performed By: #### C BC #### [facility] [address] [place], [place] [address] Yecenia Ruba Monocytes (Bld) [#/Vol] 1.4 103/ul Critically high 0.3-0.8 [facility] Comment on above: Performed By: #### C BC #### [facility] [address] [place], [place] [address] Yecenia Yeh Monocytes/100 WBC (Bld) 11.0 % Normal 1.7-12.0 [facility] Comment on above: Performed By: #### C BC #### [facility] [address] [place], [place] [address] Yecenia Ruba Neutrophils (Bld) [#/Vol] 8.7 103/ul Critically high 1.4-6.5 [facility] Comment on above: Performed By: #### C BC #### [facility] [address] [place], [place] [address] Yecenia Ruba Neutrophils/100 WBC (Bld) 68.9 % Normal 43.0-75.0 [facility] Comment on above: Performed By: #### C BC #### [facility] [address] [place], [place] [address] Yecenia Ruba Platelet mean volume (Bld) [Entitic vol] 9.8 fL Normal 9.5-13.5 [facility] Comment on above: Performed By: #### C BC #### [facility] [address] [place], [place] [address] Yecenia Yeh Platelets (Bld) [#/Vol] 249 103/ul Normal 150-450 [facility] Comment on above: Performed By: #### C BC #### [facility] [address] [place], [place] [address] Yecenia Yeh RBC (Bld) [#/Vol] 4.93 106/ul Normal 4.70-6.10 [facility] Comment on above: Performed By: #### C BC #### [facility] [address] [place], [place] [address] Yecenia Yeh WBC (Bld) [#/Vol] 12.6 103/ul Critically high 4.0-11.0 [facility] Comment on above: Performed By: #### C BC #### [facility] [address] [place], [place] [address] Yecenia Yeh ETHANOL (BLD ALC)on 07-21-20 18 Ethanol [Mass/Vol] NOTE: 80 mg/dl is th e legal limit for a blood alcohol level Normal [facility] Comment on above: Performed By: #### E TH #### [facility] [address] [place], [place] [address] Yecenia Yeh Ethanol [Mass/Vol] mg/dL Normal [facility] Comment on above: Performed By: #### E TH #### [facility] [address] [place], [place] [address] Yecenia Yeh LACTATE/LACTIC ACIDon 2017 Lactate [Moles/Vol] 0.5 mmol/L Critically low 0.7-2.1 [facility] Comment on above: Performed By: #### L ACT #### [facility] [address] [place], [place] [address] Yecenia Yeh PROF CHEM 8 (BAS METB)on Anion gap [Moles/Vol] 13.0 mmol/L Normal [facility] Comment on above: Performed By: #### B MP #### [facility] [address] [id number] Yecenia Ruba Calcium [Mass/Vol] 9.0 mg/dL Normal 8.4-10.2 [facility] Comment on above: Performed By: #### B MP #### [facility] [address] [address] Yecenia Ruba Chloride [Moles/Vol] 102 mmol/L Normal 98-107 [facility] Comment on above: Performed By: #### B MP #### [facility] [address] [address] Eycenia Ruba CO2 [Moles/Vol] 25.0 mmol/L Normal 22.0-30.0 [facility] Comment on above: Performed By: #### B MP #### [facility] [address] [place] [address] Yecenia Ruba Creatinine [Mass/Vol] 0.99 mg/dL Normal 0.66-1.25 [facility] Comment on above: Performed By: #### B MP #### [facility] [address] [place], [place] [address] Yecenia Ruba EGFR-AF BAHRAINI >60 Normal >=60 [facility] Comment on above: Performed By: #### B MP #### [facility] [address] [place] [address] Yecenia Ruba EGFR-NON AF BAHRAINI >60 Normal >=60 [facility] Comment on above: Performed By: #### B MP #### [facility] [address] [id number] Yecenia Ruba Glucose [Mass/Vol] 105 mg/dL Normal 74-106 [facility] Comment on above: Performed By: #### B MP #### [facility] [address] [place] [address] Yecenia Ruba Potassium [Moles/Vol] 4.0 mmol/L Normal 3.4-5.0 [facility] Comment on above: Performed By: #### B MP #### [facility] [address] [place] [address] Yecenia Ruba Sodium [Moles/Vol] 136 mmol/L Critically low 137-145 Th [facility] Comment on above: Performed By: #### B MP #### [facility] [address] [address] Yecenia Yeh Urea nitrogen [Mass/Vol] 18.0 mg/dL Normal 9.0-20.0 [facility] Comment on above: Performed By: #### B MP #### [facility] [address] [address] Yecenia Yeh Urea nitrogen/Creatinine [Mass ratio] 18.2 mg/mg Normal [facility] Comment on above: Performed By: #### B MP #### [facility] [address] [address] Yecenia Yeh SALICYLATEon 07-21-2018 SALICYLATE 2.7 mg/dL Normal <=20.0 [facility] Comment on above: Performed By: #### S ALYC #### [facility] [address] [place] [address] Yecenia Yeh ER NOTEon 07-02-2018 ER NOTE TRIAGE (SatJul 02, 2018 10:50 SLI1) TRIAGE NOTES: ARRIVES VIA EMS WITH C/O SEIZURE. (SatJul 02, 2018 10:50 SLI1) PATIENT: NAME: Radhika Simons, AGE: 43, GENDER: male, : Sat1975, TIME OF GREET: SatJul 02, 2018 10:48, PREFERRED LANGUAGE: Australian, SSN: [id number], Zip Code: [facility], PHONE: [phone], , , Family MD: PHYSICIAN, NO, MRSA/VRE - VERIFY: Yes, P/A DRUG SCREEN RQ?: NO, ADVANCED DIRECTIVES: No. (SatJul 02, 2018 10:50 SLI1) KG WEIGHT: 88.45. (SatJul 02, 2018 10:53 SLI1) ADMISSION: URGENCY: DYAN LEVEL 4, DEPT: Emergency, BED: WAITING. (SatJul 02, 2018 10:50 SLI1) COMPLAINT: Sq Sts Poss Seizure. (SatJul 02, 2018 10:50 SLI1) ASSESSMENT: PT AMBULATES TO EXAM CART FROM STRETCHER WITH STEADY GAIT. PT WITH C/O SEIZURE. EMS REPORTS NO SEIZURE ACTIVITY UPON THEIR ARRIVAL OR EN ROUTE. PT WITH HX OF SEIZURES, HAS BEEN OFF MEDICATIONS FOR APPROX 2 WEEKS. EMS CONCERN FOR POSSIBLE WITHDRAWL. PT REPORTS LAST HEROIN USE YESTERDAY. PT IS CURRENTLY UNDER ARREST FOR OUTSTANDING WARRANT. LCSO AT BEDSIDE. PT A/O SPEECH CLEAR AND APPROPRAITE. RESPS EASY., Triage assessment performed. (SatJul 02, 2018 10:53 SLI1) PAIN: Patient complains of pain, On a scale 0-10 patient rates pain as 7, GENERALIZED BODY PAIN. (SatJul 02, 2018 10:53 SLI1) ABUSE SCREENING: No domestic violence. (SatJul 02, 2018 10:53 SLI1) BH SCREENIN. In the last 30 days have you wished you were or wished you could go to sleep and not wake up? No, 2. In the last 30 days have you had any actual thoughts of killing yourself? No, 6. Have you ever done anything, started to do anything, or prepared to do anything to end your life? No, Patient screens as no Identifiable suicide risk., Do you have thoughts about harming others? No. (SatJul 02, 2018 10:53 SLI1) TREATMENTS IN PROGRESS: IV 8MG ZOFRAN PO. (SatJul 02, 2018 10:53 SLI1) PROVIDERS: TRIAGE NURSE: Debby Wolff R.N. (SatJul 02, 2018 10:50 SLI1) PREVIOUS VISIT ALLERGIES: Seroquel [QUEtiapine]. (SatJul 02, 2018 10:50 SLI1) Seroquel [QUEtiapine]. (SatJul 02, 2018 10:53 SLI1) KNOWN ALLERGIES QUEtiapine [From: Seroquel] Seroquel (Unconfirmed) CURRENT MEDICATIONS (SatJul 02, 2018 10:50 SLI1) NO MEDS X2 WEEKS Depakote: Patient Dose: 1000 mg by mouth SEE NOTES.1000MG IN THE AM AND 1500MG AT NIGHT. RisperDAL: Patient Dose: 4 mg by mouth DAILY. HPI SEIZURE (SatJul 02, 2018 11:11 JONNATHAN) History of Present Illness: hx seizures---drug addict---opiates---noncompli ant with meds x 1 month. CHIEF COMPLAINT: Patient presents for evaluation of seizure. HISTORIAN: History provided by patient. LOCATION: Symptoms are generalized. QUALITY: Seizure quality described as grand-mal, single episode. SEVERITY: Maximum severity of symptoms moderate, Currently there are no symptoms. TIME COURSE: Sudden onset of symptoms, There has been no change in the patient's symptoms over time. ASSOCIATED WITH: Associated with drug use. EXACERBATED BY: Patient's condition exacerbated by noncompliance with medications. RELIEVED BY: Patient's condition relieved by nothing. ROS (SatJul 02, 2018 11:13 JONNATHAN) NOTES: All systems reviewed, negative except as described above. PAST MEDICAL HISTORY MEDICAL HISTORY: History of neurological disease, including aneurysm, MRSA-LEFT ARM. (SatJul 02, 2018 10:53 SLI1) PSYCHIATRIC HISTORY: History of anxiety, History of bipolar.PANIC ATTACKS,ADHD. (SatJul 02, 2018 10:53 SLI1) SOCIAL HISTORY: Patient currently uses drugs, abuses heroin, abuses methamphetamines, Last used: YESTERDAY, Current smoker, every day, at 0.5, packs per day for 20, years; equating to 10, pack years of smoking, Patient consumes alcohol socially, Lives with others, RECOVERING ALCOHOLIC. PT REPORTS RARELY DRINKS A FEW DRINKS SOCIALLY. (SatJul 02, 2018 10:53 SLI1) NOTES: Nursing records reviewed, Medication list reviewed. (SatJul 02, 2018 11:13 JONNATHAN) PHYSICAL EXAM (SatJul 02, 2018 11:16 JONNATHAN) CONSTITUTIONAL: Vital signs reviewed, Patient afebrile, Pulse normal, Respiratory rate normal, Patient appears non toxic, Patient alert and oriented to person, place and time. HEAD: Head exam normal, Head exam included findings of head atraumatic, normocephalic. EYES: Eye exam normal, Eye exam included findings of eyelids normal to inspection, Pupils equally round and reactive to light, Extraocular muscles intact, Conjunctiva normal, Fundoscopic exam normal. ENT: ENT exam normal, Ear exam normal, Nose exam normal, Pharynx exam normal, Uvula exam normal, Tonsil exam normal, Mouth exam normal. NECK: Neck exam normal, Neck exam included findings of normal range of motion, Trachea midline, Thyroid normal. CARDIOVASCULAR: Cardiovascular assessment normal, Cardiovascular exam included findings of heart rate regular rate and rhythm, Heart sounds normal. ABDOMEN MALE: Abdominal exam normal. BACK: Back exam normal, Back exam included findings of normal inspection, range of motion normal. UPPER EXTREMITY: Upper extremity exam normal, Upper extremity exam included findings of inspection normal, Range of motion normal, Motor strength normal. LOWER EXTREMITY: Lower extremity exam normal. NEURO: Neuro exam normal. SKIN: Skin exam normal, Skin exam included findings of skin warm, dry, and normal in color. PSYCHIATRIC: Psychiatric exam normal. VITAL SIGNS VITAL SIGNS: BP: 131/82, Pulse: 85, Resp: 16, Temp: 98.8, Pain: 7, O2 sat: 100 on (RA). (SatJul 02, 2018 10:51 SLI1) BP: 126/74, Pulse: 84, Resp: 16, Pain: 0 SLEEPING, O2 sat: 100 on (RA). (SatJul 02, 2018 11:51 CLH1) BP: 131/82, Pulse: 89, Resp: 16, Pain: 7, O2 sat: 98. (SatJul 02, 2018 13:15 SLI1) NURSING ASSESSMENT: A SEPSIS SCREENING TOOL (SatJul 02, 2018 10:56 SLI1) SEPSIS SCREENING TOOL: Patient has no infection that is suspected or identified, This patient has been identified as NOT meeting the severe sepsis criteria as defined by the CMS guidelines. NURSING ASSESSMENT: FALL RISK (SatJul 02, 2018 10:56 SLI1) MORALES FALL SCALE: History of falling: No, Is there a secondary diagnosis: Yes(15), Ambulatory aid: None/BR/WC/Nurse(0), Gait/transferring: Normal/BR/Immobile (0), IV/heparin lock: Yes (20), Mental status: Oriented to own ability (0), Total: 35, FALL RISK LEVEL: LOW, Cart in low position and wheels locked, Cart rails up, Floor free of tripping/falling hazards, Call light and phone within patient's reach. NURSING ASSESSMENT: NEURO (SatJul 02, 2018 10:56 SLI1) CONSTITUTIONAL: Complex assessment performed, History obtained from patient, Patient arrives, via stretcher, via [facility], Gait steady, Patient appears comfortable, Patient cooperative, alert. Oriented to person, place and time, Skin warm, Skin dry, Skin normal in color, Mucous membranes pink, moist. Patient is well-groomed. PAIN: aching pain, GENERALIZED BODY, on a scale 0-10 patient rates pain as 7, Pain exacerbated by nothing, Nothing has been tried to alleviate the pain. NEURO: Pupils equally round and reactive to light, Able to close eyes, Face symmetrical, Speech normal, no visual changes, no facial droop, no facial numbness, no swelling, no paresthesias, Associated with seizure, HX OF SAME. ENT: Ear assessment findings include ear normal to inspection, Nasal assessment findings include nose normal to inspection, Mouth and throat assessment findings include mouth inspection normal. NOTES: Patient tolerated procedure well. SAFETY: Side rails up, Cart/Stretcher in lowest position, Call light within reach, Hospital ID band on. EVENTS ATTENDING: DO Estes Terrill saw the patient at SatJul 02, 2018 11:04. (SatJul 02, 2018 11:04 JONNATHAN) TRANSFER: Triage to Emergency Waiting. (SatJul 02, 2018 10:50 SLI1) Emergency Waiting to Emergency Department - Pod 1 05. (SatJul 02, 2018 10:51 SLI1) Removed from Emergency Emergency Department - Pod 1 05. (SatJul 02, 2018 13:14 SLI1) NURSING PROCEDURE: DISCHARGE NOTE (SatJul 02, 2018 13:15 SLI1) DISCHARGE: Patient discharged in police custody, ambulating without assistance, transported via police, accompanied by law enforcement, Summary of Care printed/ provided, Transition record given to patient, Discharge instructions given to patient, Simple or moderate discharge teaching performed, by URBANO, RN, Prescriptions given and instructions on side effects given, Name of prescription(s) given: Depakote, Medication reconciliation form given, and reviewed with patient, Above person(s) verbalized understanding of discharge instructions and follow-up care, Patient discharged by, Dr. ESTES, Patient treated and evaluated by physician, Notes: DECLINES WC. TIME: Transition record given to patient (includes List of Test and Procedures), No Barriers to Learning, Explained DCI, Patient Receptive to DCI. BELONGINGS: Belongings remain with patient, Valuables remain with patient. NOTES: Notes: Delay in d/c d/t awaiting medication from pharmacy. VITAL SIGNS: BP: 131/82, Pulse: 89, Resp: 16, Pain: 7, O2 sat: 98, Time: 07/02/2018 13:15. NURSING PROCEDURE: NURSE NOTES NURSES NOTES: Notes: updated on pharmacy med list. (SatJul 02, 2018 11:50 SLI1) Notes: awaiting medication from pharmacy. (SatJul 02, 2018 12:33 SLI1) Notes: per pharmacy medication is being walked to ER d/t no tubes. Delay in d/c d/t same. (SatJul 02, 2018 13:09 SLI1) MEDICATION SERVICE (SatJul 02, 2018 13:10 JONNATHAN) Depakote: Order: Depakote - Dose: 1000 mg Route: orally Ordered by: Js Estes DO Entered by: Js Estes DO SatJul 02, 2018 12:27 Authenticated using password. Acknowledged by: Jennifer Wolff SatJul 02, 2018 12:30 Documented as given by: Debby Wolff R.N. SatJul 02, 2018 13:10 Patient, Medication, Dose, Route, Schedule verified prior to administration., Amount ( Dose ) given: 1000mg, Site: Medication administered P.O., Correct patient, time, route, dose and medication confirmed prior to administration, Patient advised of actions and side-effects prior to administration, Allergies confirmed and medications reviewed prior to administration, Patient tolerated procedure well, Patient in position of comfort, Side rails up, Cart in lowest position, Call light in reach. ORDERS (SatJul 02, 2018 11:11 JONNATHAN) [facility]: Ordered by: DO Estes Terrill Ordered for: DO Estes Terrill Status: Done by: Jennifer Wolff Sarah L. - SatJul 02, 2018 11:49. ORDER DETAILS Order Name: [facility], Status: Done, Time: 11:49 07/02/2018, User: DO Estes Terrill, - Ordered for: DO Estes Terrill, - Entered by: DO Estes Terrill - SatJul 02, 2018 11:11, - Quantity: 1. DIAGNOSIS (SatJul 02, 2018 12:27 JONNATHAN) FINAL: PRIMARY: Breakthru seizure, ADDITIONAL: Noncompliance. DISPOSITION PATIENT: Disposition: [address] / Law Enforcement / Longterm, Disposition Transport: Law Enforcement, Condition: GOOD. (SatJul 02, 2018 12:27 JONNATHAN) Patient left the department. (SatJul 02, 2018 13:14 SLI1) INSTRUCTION (SatJul 02, 2018 12:28 JONNATHAN) DISCHARGE: SEIZURE - PRIOR SEIZURE HISTORY (CONVULSIONS). FOLLOWUP: PHYSICIAN, NO FAMILY, , MD ERAN, STEVIE Benitez, , LM NEUROLOGY, [address], [facility] [address], , Follow up with Primary Specialist Call the office to make an appointment. PRESCRIPTION (SatJul 02, 2018 12:29 JONNATHAN) Depakote: delayed release tablet : 500 mg : oral : Quantity: Unit: . Route: oral. Schedule: . Dispense: qs 1 mon May substitute. Refills: No Refills POTENTIAL MODERATE INTERACTION: RisperDAL [risperiDONE] Notes: , 2 po am and 3 po qhs---qs 1 month No Refills May fill with generic unless noted HOANG. ADMIN DIGITAL SIGNATURE: Jennifer Wolff Sarah L. (SatJul 02, 2018 13:25 SLI1) DO Estes Terrill. (SatJul 02, 2018 14:04 JONNATHAN) HOWIE Arreola Cassielyn L. (SatJul 16, 2018 16:07 CLH1) White: JONNATHAN=DO Estes Terrill CLH1=HOWIE Arreola Cassielyn L SLI1=Jennifer Wolff Sarah L. Normal [facility] CBC WITH DIFFERENTIALon 05-19 ABSOLUTE BASOPHIL COUNT 0 10 3/uL Low 0.02-0.05 [facility] Comment on above: Performed By: #### P T, CW #### [facility] [address] [place] [address] ABSOLUTE NEUTROPHIL COUNT 3.4 10 3/uL Normal 1.8-7.0 [facility] Comment on above: Performed By: #### P T, CW #### [facility] [address] [place] [address] Basophils/100 WBC (Bld) 0.6 % Normal 0-1 [facility] Comment on above: Performed By: #### P T, CW #### [facility] [address] [place] [address] Eosinophils (Bld) [#/Vol] 0 10 3/uL Low 0.05-0.25 [facility] Comment on above: Performed By: #### P T, CW #### [address] [address] Eosinophils/100 WBC (Bld) 0.3 % Low 1-4 [facility] Comment on above: Performed By: #### P T, CW #### [address] [address] Hematocrit (Bld) [Volume fraction] 42.1 % Normal 41.0-53.0 [facility] Comment on above: Performed By: #### P T, CW #### [address] [address] Hemoglobin (Bld) [Mass/Vol] 14.0 g/dL Normal 13.5-17.5 [facility] Comment on above: Performed By: #### P T, CW #### [address] [address] Lymphocytes (Bld) [#/Vol] 1.8 10 3/uL Normal 1.5-3.0 [facility] Comment on above: Performed By: #### P T, CW #### [address] [address] Lymphocytes/100 WBC (Bld) 31.0 % Normal 24-44 [facility] Comment on above: Performed By: #### P T, CW #### [address] [address] MCH (RBC) [Entitic mass] 33.2 GM/DL Normal 31.0-37.0 [facility] Comment on above: Performed By: #### P T, CW #### [address] [address] MCV (RBC) [Entitic vol] 87.4 fL Normal 80.0-100.0 [facility] Comment on above: Performed By: #### P T, CW #### [address] [address] MEAN CELL HEMOGLOBIN 29.0 PG Normal 26.0-34.0 [facility] Comment on above: Performed By: #### P T, CW #### [address] [address] Monocytes (Bld) [#/Vol] 0.6 10 3/uL Normal 0.1-1.0 [facility] Comment on above: Performed By: #### P T, CW #### [address] [address] Monocytes/100 WBC (Bld) 10.7 % High 1-7 [facility] Comment on above: Performed By: #### P T, CW #### [address] [address] Neutrophils/100 WBC (Bld) 57.4 % Normal 36-71 [facility] Comment on above: Performed By: #### P T, CW #### [address] [address] Platelet mean volume (Bld) [Entitic vol] 7.8 UM3 Normal 7.4-10.4 [facility] Comment on above: Performed By: #### P T, CW #### [address] [address] Platelets (Bld) [#/Vol] 280 TH/MM3 Normal 140-440 [facility] Comment on above: Performed By: #### P T, CW #### [address] [address] RBC (Bld) [#/Vol] 4.82 MIL/MM3 Normal 4.50-5.90 [facility] Comment on above: Performed By: #### P T, CW #### [address] [address] RED CELL DISTRIBUTION WID 13.7 UNITS Normal 11.5-14.5 [facility] Comment on above: Performed By: #### P T, CW #### [address] [address] WBC (Bld) [#/Vol] 5.9 TH/MM3 Normal 4.5-11.0 [facility] Comment on above: Performed By: #### P T, CW #### [address] [address] COMPREHENSIVE METABOLIC PANE Beto 06-05-2018 ALP [Catalytic activity/Vol] 40 U/L Normal 38-126 [facility] Comment on above: Performed By: #### M OP, TSH #### [facility] [address] [place] [address] ALT/SGPT 48 IU/L Normal 17-63 [facility] Comment on above: Performed By: #### M OP, TSH #### [facility] [address] [place] [address] AST/SGOT 31 IU/L Normal 15-41 [facility] Comment on above: Performed By: #### M OP, TSH #### [facility] [address] [place] [address] Bilirubin [Mass/Vol] 0.1 mg/dL Low 0.4-2.0 [facility] Comment on above: Performed By: #### M OP, TSH #### [facility] [address] [place] [address] SGOT/SGPT RATIO 0.7 Normal 0-2 [facility] Comment on above: Performed By: #### M OP, TSH #### [facility] [address] [place] [address] Albumin [Mass/Vol] 2.8 g/dL Low 3.5-4.8 [facility] Comment on above: Performed By: #### M OP, TSH #### [facility] [address] [place] [address] Albumin/Globulin [Mass ratio] 0.9 {ratio} Normal 0.9-2.0 [facility] Comment on above: Performed By: #### M OP, TSH #### [facility] [address] [place] [address] Anion gap [Moles/Vol] 15.2 mmol/L Normal 8-22 [facility] Comment on above: Performed By: #### M OP, TSH #### [facility] [address] [place] [address] Calcium [Mass/Vol] 8.6 mg/dL Low 8.9-10.3 [facility] Comment on above: Performed By: #### M OP, TSH #### [facility] [address] [place] [address] Chloride [Moles/Vol] 101 mmol/L Normal 101-111 [facility] Comment on above: Performed By: #### M OP, TSH #### [address] [address] CO2 [Moles/Vol] 24 mmol/L Normal 22-32 [facility] Comment on above: Performed By: #### M OP, TSH #### [facility] [address] [place] [address] Creatinine [Mass/Vol] 0.74 mg/dL Normal 0.70-1.20 [facility] Comment on above: Performed By: #### M OP, TSH #### [facility] [address] [place] [address] GFR/1.73 sq M predicted among non-blacks MDRD (S/P/Bld) [Vol rate/Area] mL/min/{1.73_m2} Normal [facility] Comment on above: Result Comment: TO ESTIMATE GFR FOR AMERICANS MULTIPLY THE RESULT BY 1.21. GFR LESS THAN 60 mL/min/1.73m2: SUGGESTIVE OF CHRONIC KIDNEY DISEASE. GFR LESS THAN 15 mL/min/1.73m2: SUGGESTIVE OF END STAGE RENAL DISEASE. Performed By: #### M OP, TSH #### [address] [address] Globulin (S) [Mass/Vol] 3.3 G/dL Normal [facility] Comment on above: Performed By: #### M OP, TSH #### [address] [address] Glucose [Mass/Vol] 92 mg/dL Normal 74-118 [facility] Comment on above: Result Comment: NOTE IF THIS IS A FASTING SPECIMEN THE FOLLOWING RANGES APPLY: NORMAL 70 TO 99 mg/dL PREDIABETIC 100 TO 125 mg/dL DIABETIC >= 126 mg/dL Performed By: #### M OP, TSH #### [address] [address] Osmolality [Osmolality] 272 mOSM/kg Low 275-305 [facility] Comment on above: Performed By: #### M OP, TSH #### [address] [address] Potassium [Moles/Vol] 4.2 mmol/L Normal 3.6-5.1 [facility] Comment on above: Performed By: #### M OP, TSH #### [address] [address] Protein [Mass/Vol] 6.1 G/dL Normal 6.1-7.9 [facility] Comment on above: Performed By: #### M OP, TSH #### [address] [address] Sodium [Moles/Vol] 136 mmol/L Normal 136-144 [facility] Comment on above: Performed By: #### M OP, TSH #### [address] [address] Urea nitrogen [Mass/Vol] 15 mg/dL Normal 8-20 [facility] Comment on above: Performed By: #### M OP, TSH #### [address] [address] Urea nitrogen/Creatinine [Mass ratio] 20.3 mg/mg High 6-20 [facility] Comment on above: Performed By: #### M OP, TSH #### [address] [address] HEPATITIS PANEL 2on 06-05- 18 [facility] Comment on above: Performed By: #### H EP2, HIV1.2 #### [address] [address] HEP B CORE AB IGM NONREACTIVE Normal NONREACTIVE [facility] Comment on above: Performed By: #### H EP2, HIV1.2 #### [address] [address] HEP B AL AG [facility]REACTIVE [facility] Comment on above: Performed By: #### H EP2, HIV1.2 #### [address] [address] HEP C AB REACTIVE Abnormal NONREACTIVE [facility] Comment on above: Result Comment: THIS IS A SCREENING TEST THIS RESULT IS CONSIDERED POSITIVE FOR HCV, THERE IS A 97% POSITIVE PREDICTIVE VALUE. NO FURTHER TESTING HAS BEEN ORDERED. Performed By: #### H EP2, HIV1.2 #### [address] [address] HIV 1 2on 06-05-2018 HIV 1 2 NONREACTIVE Normal [facility] Comment on above: Performed By: #### H EP2, HIV1.2 #### [address] [address] PROTHROMBIN TIMEon 8 INR Coag (PPP) [Relative time] 1.0 {INR} Normal - [facility] Comment on above: Result Comment: 2.0- 3.0 for Warfarin anticoagulation. (levels up to 4.0 may be required in some clinical situations) Performed By: #### P T, CW #### [address] [address] PT Coag (PPP) [Time] 10.3 s Normal 9.0-11.5 [facility] Comment on above: Result Comment: N EW REFERENCE RANGE FOR NO ANTICOAGULANT THERAPY . Performed By: #### P T, CW #### [address] [address] THYROID STIMULATING HORMOon 06-05-2018 TSH Qn 1.40 uIU/mL Normal 0.34-5.60 [facility] Comment on above: Performed By: #### M OP, TSH #### [address] [address] STAT TOXICOLOGY URINEon 05-19 AMPHETAMINE Positive Normal CUTOFF 1000 [facility] Comment on above: Performed By: #### T OXUR #### [facility] [address] [place] [address] BARBITURATES Negative Normal CUTOFF 200 [facility] Comment on above: Performed By: #### T OXUR #### [facility] [address] [place] [address] Benzodiazepines Ql (U) Negative Normal CUTOFF 200 [facility] Comment on above: Performed By: #### T OXUR #### [facility] [address] [place] [address] Cannabinoids Screen Ql (U) Negative Normal CUTOFF 50 [facility] Comment on above: Performed By: #### T OXUR #### [facility] [address] [place] [address] COCAINE METABOLITE Negative Normal CUTOFF 300 [facility] Comment on above: Performed By: #### T OXUR #### [facility] [address] [place] [address] CREATININE URINE 304.7 mg/dl Normal [facility] Comment on above: Performed By: #### T OXUR #### [facility] [address] [place] [address] Methadone Ql (U) Negative Normal CUTOFF 300 [facility] Comment on above: Performed By: #### T OXUR #### [facility] [address] [place] [address] Opiates Ql (U) Positive Normal CUTOFF 300 [facility] Comment on above: Performed By: #### T OXUR #### [facility] [address] [place] [address] OXYCODONE Negative Normal CUTOFF 300 [facility] Comment on above: Result Comment: DRUG S OF ABUSE SCREENING IS FOR MEDICAL PURPOSES ONLY. RESULTS HAVE NOT BEEN CONFIRMED BY A SECOND METHOD. Performed By: #### T OXUR #### [facility] [address] [place] [address] Phencyclidine Ql (U) Negative Normal CUTOFF 25 [facility] Comment on above: Performed By: #### T OXUR #### [facility] [address] [place] [address] TOTAL TRICYCLIC Negative Normal CUTOFF 300 [facility] Comment on above: Performed By: #### T OXUR #### [facility] [address] [place] [address] URINALYSIS PROFILEon 018 Bacteria LM.HPF (Urine sed) [#/Area] NONE SEEN Normal [facility] Comment on above: Performed By: #### U #### [facility] [address] [place] [address] CAST HYALINE 0-5 Normal NONE [facility] Comment on above: Performed By: #### U #### [facility] [address] [place] [address] RBC (U) [#/Vol] 0-2 Normal [facility] Comment on above: Performed By: #### U #### [facility] [address] [place] [address] WBC (U) [#/Vol] 3-5 Normal NONE [facility] Comment on above: Performed By: #### U #### [facility] [address] [place] [address] BILIRUBIN UA Negative Normal NEGATIVE [facility] Comment on above: Performed By: #### U #### [facility] [address] [place] [address] BLOOD Negative Normal NEGATIVE [facility] Comment on above: Performed By: #### U #### [facility] [address] [place] [address] Clarity (U) CLEAR Normal [facility] Comment on above: Performed By: #### U #### [facility] [address] [place] [address] Color (U) DK YEL Normal [facility] Comment on above: Performed By: #### U #### [facility] [address] [place] [address] Glucose [Mass/Vol] Negative Normal NEGATIVE [facility] Comment on above: Performed By: #### U #### [facility] [address] [place] [address] KETONE TRACE Abnormal NEGATIVE [facility] Comment on above: Performed By: #### U #### [facility] [address] [place] [address] Nitrite Ql (U) Negative Normal NEGATIVE [facility] Comment on above: Performed By: #### U #### [facility] [address] [place] [address] PH URINALYSIS 5.0 Normal 4.5-8.0 [facility] Comment on above: Performed By: #### U #### [facility] [address] [place] [address] Protein (U) [Mass/Vol] Negative Normal NEGATIVE [facility] Comment on above: Performed By: #### U #### [address] [address] Specific gravity (U) [Rel density] 1.030 Normal [facility] Comment on above: Performed By: #### U #### [address] [address] UROBILINOGEN C 0.2 EU/DL Normal 0.2-1.0 [facility] Comment on above: Performed By: #### U #### [address] [address] WBC (Bld) [#/Vol] Negative Normal NEGATIVE [facility] Comment on above: Performed By: #### U #### [facility] [address] [place] [address] REFLEX CUR PEDIATRIC <24 MON UCC Normal [facility] Comment on above: Performed By: #### U #### [facility] [address] [place] [address] DOAon 01-14-2018 Amphetamine Screen Ur Presumptive Pos Invalid Interpretation Code Negative [facility] Comment on above: Performed By: #### 6 0170 ####[facility], [address], [place] [id number] [facility], [address] [place] [address] Barbituate Screen Ur Negative Invalid Interpretation Code Negative [facility] Comment on above: Performed By: #### 6 0170 ####[facility], [address], [place] [id number] [facility], [address] [place] [address] Benzodiazepines Ur Negative Invalid Interpretation Code Negative [facility] Comment on above: Performed By: #### 6 0170 ####[facility], [address], [place] [address]SMYDCEJZJRIJHenry [facility], [address] [place] [address] Cannabinoid Screen Ur Negative Invalid Interpretation Code Negative [facility] Comment on above: Result Comment: Test ing performed without Xxbun-zq-Spwodla. Legal defensibility is compromised without a Lfcku-wp-Xlkjazc. Suggest resubmission of specimen if legal defensibility is desired. All positive results are unconfirmed. Since false positive results are known to occur, contact the Laboratory for confirmation testing if indicated.Cut-Off ValuesAmphetamines- Negative <1000 ng/mLBarbiturates- Negative <200 ng/mLBenzodiazepines- Negative <200 ng/mLCocaine (Metabolite)- Negative <300 ng/mLOpiates- Negative <300 ng/mLPCP- Negative <25 ng/mLCannabinoids (THC)- Negative <50 ng/mL Performed By: #### 6 0170 ####[facility], [address], [place] [id number] [facility], [address] [place] [address] Cocaine Screen Ur Negative Invalid Interpretation Code Negative [facility] Comment on above: Performed By: #### 6 0170 ####[facility], [address], [place] [id number] - [facility], [address] [place] [address] Opiate Screen Ur Presumptive Pos Invalid Interpretation Code Negative [facility] Comment on above: Performed By: #### 6 0170 ####[facility], [address], [place] [id number] [facility], [address] [place] [address] Ur PCP Scrn Negative Invalid Interpretation Code Negative [facility] Comment on above: Performed By: #### 6 0170 ####[facility], [address], [place] [id number] - [facility], [address] [place] [address] ED Clinical Summaryon 2017 ED Clinical Summary [facility] [address] [place], [place] [id number] Fax: [phone] PERSON INFORMATIONName: RADHIKA SIMONS Age: 42 Years : [birth year] Sex: Male Language: Australian PCP: Marital Status: Phone: Med Service: Emergency Medicine Arrival: 01/14/18 06:04:00 Visit Reason: Seizure; SEIZURE Acuity: 3 LOS: 000 03:53 Address:[address] [place] [address] [address] [place] [id number] Diagnosis:Abscess of right forearm; PseudoseizureMedications Administered:Medication Dose Route ibuprofen 600 mg Oral sulfamethoxazole-trimethopri m 2 tab Oral lidocaine 400 mg ID sodium chloride 500 mL IRR - Topical phenytoin 1470 mg IV Piggyback Radiology Orders:Laboratory Orders:Lab and Rad:Laboratory or Other Results This Visit (last charted value for your 01/14/2018 visit) Chemistry 01/14/2018 6:13 AM Phenytoin Total: <0.4 mcg/mL -- Normal range between ( 10.0 and 20.0 ) Toxicology 01/14/2018 8:36 AM Amphetamine Screen Ur: Presumptive Pos Benzodiazepines Ur: Negative Cocaine Screen Ur: Negative Cannabinoid Screen Ur: Negative Barbituate Screen Ur: Negative Opiate Screen Ur: Presumptive Pos Ur PCP Scrn: Negative Medications: PROVIDER INFORMATION Provider Role Assigned Unassigned JOZEF Washington Danae S ED MidLevel 01/14/18 06:07:44 Rik Baker ED Nurse 01/14/18 06:20:37 MD Sesar, Ilir Black ED Provider 01/14/18 07:03:44 Sujata Rangel ED Nurse 01/14/18 07:25:44 Attending Physician:DO Graham Erin K Admit DocRobDO nuno Erin K Consulting Doc VITALS INFORMATIONVital Sign Triage Latest Temp Oral 98.4 Deg F 98.4 Deg F Temp Temporal Temp Intravascular Temp Axillary Temp Rectal 02 Sat 98 % 97 % Respiratory Rate 16 br/min 16 br/min Peripheral Pulse Rate 118 bpm 83 bpm Apical Heart Rate Blood Pressure 138 mmHg / 83 mmHg 102 mmHg / 54 mmHg Allergies SEROquel Immunizations No Immunizations Documented This Visit DISCHARGE INFORMATIONDischarge Disposition: Home or Self CareDischarge Location: HomeDischarge Date and Time: 01/14/18 09:57:00ED Checkout Date and Time: 01/14/18 09:57:00DEPART REASON INCOMPLETE INFORMATION Depart Action Incomplete Reason Vital Signs/Pain Recently assessed Problems Active SeizureSmoking Status Refused tobacco status screenPATIENT EDUCATION INFORMATIONInstructions:Skin AbscessFollow up:With: Address: When: Follow up with primary care provider In 1 week [facility] ED Note Nursingon 01-14-2018 ED Note Nursing IV removed and pt di scharged only for Sujata Rn to [employer] officer Tio Electronically Signed on 01/14/18 09:56 AM Barbara Grant [facility] ED Note Physicianon 01-15-20 ED Note Physician Incision and Drainag e Procedure NoteAbscess Location: right forearmAnesthesia: 10 ml of 1% lidocaine with epiDrainage amount/type: large amount of purulent materialWound care (packing/type): 3 inches 1/4 plain gauzeSpecimens Removed: Fluid sent to lab and sent for evaluationEstimated Blood Loss: NoneAfter verbal consent by myself with risks that include nerve, vessel or injury to underlying structures. The area was prepared in sterile fashion. The affected location was anesthetized with local anesthesia in a field block manner and the abscess was incised using an 11-blade scalpel. Loculations were broken up using blunt dissection and cavity irrigated with normal saline. The patient tolerated the procedure well and there were no apparent complications. A sterile dressing was applied.Electronically Signed on 01/14/18 07:29 AM __JOZEF Washington Danae S [facility] ED Patient Education Noteon 01-14-2018 ED Patient Education Note Patient Education InstructionsName: RADHIKA SIMONS Current Date: 01/14/18 09:57:36MRN: [id number] [facility]: [id number] following sheet(s) are the Patient Education Leaflets for RADHIKA SIMONS Infectious DiseaseSkin AbscessA skin abscess is an infected area on or under your skin that contains a collection of pus and other material. An abscess may also be called a furuncle, carbuncle, or boil. An abscess can occur in or on almost any part of your body. Some abscesses break open (rupture) on their own. Most continue to get worse unless they are treated. The infection can spread deeper into the body and eventually into your blood, which can make you feel ill. Treatment usually involves draining the abscess.What are the causes?An abscess occurs when germs, often bacteria, pass through your skin and cause an infection. This may be caused by:? A scrape or cut on your skin.? A puncture wound through your skin, including a needle injection.? Blocked oil or sweat glands.? Blocked and infected hair follicles.? A cyst that forms beneath your skin (sebaceous cyst) and becomes infected.What increases the risk?This condition is more likely to develop in people who:? Have a weak body defense system (immune system).? Have diabetes.? Have dry and irritated skin.? Get frequent injections or use illegal IV drugs.? Have a foreign body in a wound, such as a splinter.? Have problems with their lymph system or veins.What are the signs or symptoms?An abscess may start as a painful, firm bump under the skin. Over time, the abscess may get larger or become softer. Pus may appear at the top of the abscess, causing pressure and pain. It may eventually break through the skin and drain. Other symptoms include:? Redness.? Warmth.? Swelling.? Tenderness.? A sore on the skin.How is this diagnosed?This condition is diagnosed based on your medical history and a physical exam. A sample of pus may be taken from the abscess to find out what is causing the infection and what antibiotics can be used to treat it. You also may have:? Blood tests to look for signs of infection or spread of an infection to your blood.? Imaging studies such as ultrasound, CT scan, or MRI if the abscess is deep.How is this treated?Small abscesses that drain on their own may not need treatment. Treatment for an abscess that does not rupture on its own may include:? Warm compresses applied to the area several times per day.? Incision and drainage. Your health care provider will make an incision to open the abscess and will remove pus and any foreign body or tissue. The incision area may be packed with gauze to keep it open for a few days while it heals.? Antibiotic medicines to treat infection. For a severe abscess, you may first get antibiotics through an IV and then change to oral antibiotics.Follow these instructions at home:Abscess Care? If you have an abscess that has not drained, place a warm, clean, wet washcloth over the abscess several times a day. Do this as told by your health care provider.? Follow instructions from your health care provider about how to take care of your abscess. Make sure you:? Cover the abscess with a bandage (dressing).? Change your dressing or gauze as told by your health care provider.? Wash your hands with soap and water before you change the dressing or gauze. If soap and water are not available, use hand wet end tester.? Check your abscess every day for signs of a worsening infection. Check for:? More redness, swelling, or pain.? More fluid or blood.? Warmth.? More pus or a bad smell.Medicines? Take ykhe-uxp-zjapjkb and prescription medicines only as told by your health care provider.? If you were prescribed an antibiotic medicine, take it as told by your health care provider. Do not stop taking the antibiotic even if you start to feel better.General instructions? To avoid spreading the infection:? Do not share personal care items, towels, or hot tubs with others.? Avoid making skin contact with other people.? Keep all follow-up visits as told by your health care provider. This is important.Contact a health care provider if:? You have more redness, swelling, or pain around your abscess.? You have more fluid or blood coming from your abscess.? Your abscess feels warm to the touch.? You have more pus or a bad smell coming from your abscess.? You have a fever.? You have muscle aches.? You have chills or a general ill feeling.Get help right away if:? You have severe pain.? You see red streaks on your skin spreading away from the abscess.This information is not intended to replace advice given to you by your health care provider. Make sure you discuss any questions you have with your health care provider.Document Released: 05/15/2006 Document Revised: 03/31/2017 Document Reviewed: 06/13/2016[employer] Patient Education ? 2017 [employer]. Normal [facility] ED Patient Summaryon 018 ED Patient Summary (Inserted Image. Amelia ble to display) [facility] [id number] Agapito [phone] Instructions (Patient) Name:RADHIKA SIMONS BDOB: [birth year] For Visit: Seizure; SEIZUREFinal Diagnosis: Abscess of right forearm; Pseudoseizure Visit Date: 01/14/18 06:04:00Address: [address] [facility] [id number]: Primary Care Provider:Name: Phone: Emergency Department Providers:Primary Physician: Ilir Kaba [facility] would like to thank you for allowing us to assist you with your healthcare needs. The following includes patient education materials and information regarding your injury/illness. Follow-up Instructions: You were treated today on an emergency basis; it may be cesar to contact your primary care provider to notify them of your visit today. You may have been referred to your regular doctor or a specialist, please follow up as instructed. If your condition worsens or you can't get in to see the doctor, contact the Emergency Department.With: Address: When: Follow up with primary care provider In 1 week New MedicationsNoneMedications to Continue Taking That Have ChangedNoneMedications to Continue with No ChangesNoneNo Longer Take the Following MedicationsNoneContact Your Physician Prior to Taking the Following MedicationsNonePatient Education Materials:Skin AbscessSkin AbscessA skin abscess is an infected area on or under your skin that contains a collection of pus and other material. An abscess may also be called a furuncle, carbuncle, or boil. An abscess can occur in or on almost any part of your body. Some abscesses break open (rupture) on their own. Most continue to get worse unless they are treated. The infection can spread deeper into the body and eventually into your blood, which can make you feel ill. Treatment usually involves draining the abscess.What are the causes?An abscess occurs when germs, often bacteria, pass through your skin and cause an infection. This may be caused by:? A scrape or cut on your skin.? A puncture wound through your skin, including a needle injection.? Blocked oil or sweat glands.? Blocked and infected hair follicles.? A cyst that forms beneath your skin (sebaceous cyst) and becomes infected.What increases the risk?This condition is more likely to develop in people who:? Have a weak body defense system (immune system).? Have diabetes.? Have dry and irritated skin.? Get frequent injections or use illegal IV drugs.? Have a foreign body in a wound, such as a splinter.? Have problems with their lymph system or veins.What are the signs or symptoms?An abscess may start as a painful, firm bump under the skin. Over time, the abscess may get larger or become softer. Pus may appear at the top of the abscess, causing pressure and pain. It may eventually break through the skin and drain. Other symptoms include:? Redness.? Warmth.? Swelling.? Tenderness.? A sore on the skin.How is this diagnosed?This condition is diagnosed based on your medical history and a physical exam. A sample of pus may be taken from the abscess to find out what is causing the infection and what antibiotics can be used to treat it. You also may have:? Blood tests to look for signs of infection or spread of an infection to your blood.? Imaging studies such as ultrasound, CT scan, or MRI if the abscess is deep.How is this treated?Small abscesses that drain on their own may not need treatment. Treatment for an abscess that does not rupture on its own may include:? Warm compresses applied to the area several times per day.? Incision and drainage. Your health care provider will make an incision to open the abscess and will remove pus and any foreign body or tissue. The incision area may be packed with gauze to keep it open for a few days while it heals.? Antibiotic medicines to treat infection. For a severe abscess, you may first get antibiotics through an IV and then change to oral antibiotics.Follow these instructions at home:Abscess Care? If you have an abscess that has not drained, place a warm, clean, wet washcloth over the abscess several times a day. Do this as told by your health care provider.? Follow instructions from your health care provider about how to take care of your abscess. Make sure you:? Cover the abscess with a bandage (dressing).? Change your dressing or gauze as told by your health care provider.? Wash your hands with soap and water before you change the dressing or gauze. If soap and water are not available, use hand wet end tester.? Check your abscess every day for signs of a worsening infection. Check for:? More redness, swelling, or pain.? More fluid or blood.? Warmth.? More pus or a bad smell.Medicines? Take wtle-ojz-tnzkwex and prescription medicines only as told by your health care provider.? If you were prescribed an antibiotic medicine, take it as told by your health care provider. Do not stop taking the antibiotic even if you start to feel better.General instructions? To avoid spreading the infection:? Do not share personal care items, towels, or hot tubs with others.? Avoid making skin contact with other people.? Keep all follow-up visits as told by your health care provider. This is important.Contact a health care provider if:? You have more redness, swelling, or pain around your abscess.? You have more fluid or blood coming from your abscess.? Your abscess feels warm to the touch.? You have more pus or a bad smell coming from your abscess.? You have a fever.? You have muscle aches.? You have chills or a general ill feeling.Get help right away if:? You have severe pain.? You see red streaks on your skin spreading away from the abscess.This information is not intended to replace advice given to you by your health care provider. Make sure you discuss any questions you have with your health care provider.Document Released: 05/15/2006 Document Revised: 03/31/2017 Document Reviewed: 06/13/2016[employer] Patient Education ? 2017 [employer]Allergy Info: SEROquelMedication Information:[facility] Physicians provided you with a complete list of medications post discharge, if you have been instructed to stop taking a medication please ensure you also follow up with this information to your Primary Care Physician. Unless otherwise noted, patient will continue to take medications as prescribed prior to the Emergency Room visit. Any specific questions regarding your chronic medications and dosages should be discussed with your physician(s) and pharmacist.Major Tests and Procedures:The following procedures and tests were performed during your ED visit.Radiology Orders:Laboratory Orders: Patient Care Orders:Discharge Patient 01/14/18 7:29:00 EDTPeripheral IV Insertion 01/14/18 7:37:00 EDTComment: General Information We are happy to serve you. The examination and treatment you have received have been on an emergency basis only. It's not intended to be a substitute or replacement for complete medical care. Call the Emergency Department for any questions or concerns at [phone]. Some illnesses get worse even when treated correctly. Others may take more time before the correct diagnosis can be made. If you don't get better, or you get worse, you should return to the Emergency Department or call your doctor. We are very concerned about your general health and safety. When driving or riding in a vehicle, we encourage you to always wear your seatbelt, and if you have an or child, always use the appropriate infant/child car seat. Medication Instructions If you need a prescription refill, you must see your doctor. Take all medications only as directed. Do not take a medication you are allergic to. If you have been prescribed new medications check with your pharmacist to make sure there are no problems with the medications you are taking. To help ensure your safety, keep a copy of this discharge instruction to share with your health care provider at your next visit. It contains a copy of your medication list, diagnoses made in our emergency department and information about treatment you received here. Referral Instructions You were treated today on an emergency basis; it may be cesar to contact your primary care provider to notify them of your visit today. You may have been referred to your regular doctor or a specialist, please follow up as instructed. If your condition worsens or you can't get in to see the doctor, contact the Emergency Department. Diagnostic Studies If you had a diagnostic study performed, we will notify you of any lab, EKG or X-ray findings that would require a change in treatment. A specialist reviews most diagnostic studies after your visit. Some test results are not available for 24-72 hours. You may need a copy of your x-rays to take to your follow-up doctor. You can arrange to sheepskin pickler a copy of your x-rays by calling [phone]. Case ManagementA rn case manager can help you with follow up visits, referrals, or questions about your care and other needs. You may call [phone] during regular business hours. Many medications can make you feel sleepy, impair your ability to drive, or effect your ability to make good decisions. Some of these medicines can even make you stop breathing when you go to sleep, particularly if several different medicines are combined. For this reason, we ask that you arrange for someone else to give you a ride home, do not operate machinery or make important decisions, and do not take any sleeping pills, pain pills, or drink alcohol for at least 4-6 hours from the time you leave the emergency department. It is also important to know that the use of narcotic medications can be habit forming.I have received this information and my questions have been answered. Patient/Ferry Operator Signature: Relationship to Patient: Patient Name:RADHIKA SIMONS Witness Signature: Date:01/14/18 09:57:35 Normal [facility] [place] 01-14-2018 Phenytoin Total <0.4 Low 10.0-20.0 [facility] Comment on above: Performed By: #### 6 0170 ####[facility], [address], [place] [id number] - [facility], [address] [place] [address] Alcohol, Medicalon 8 Ethanol mg/dL Invalid Interpretation Code <3.00 mg/dL [facility] CBC Auto Differentialon 08-20 Basophils 0.05 K/mcL Invalid Interpretation Code 0.00 - 0.30 [facility] Basophils/100 leukocytes 0.7 % Invalid Interpretation Code [facility] Eosinophils 0.06 K/mcL Invalid Interpretation Code 0.00 - 0.50 [facility] Eosinophils/100 leukocytes 0.8 % Invalid Interpretation Code [facility] Erythrocytes (RBC) 0.00 K/mcL Invalid Interpretation Code 0.00 - 0.00 [facility] Erythrocytes (RBC) 4.97 M/mcL Invalid Interpretation Code 4.50 - 5.90 [facility] Hematocrit (HCT) 43.1 % Invalid Interpretation Code 41 - 53 % [facility] Hemoglobin (HGB) 14.9 g/dL Invalid Interpretation Code 13.5 - 17.5 g/dL [facility] Lymphocytes 1.97 K/mcL Invalid Interpretation Code 0.90 - 4.00 [facility] Lymphocytes/100 leukocytes 26.5 % Invalid Interpretation Code [facility] MCH 30.0 pg Invalid Interpretation Code 26 - 34 pg [facility] MCHC 34.6 g/dL Invalid Interpretation Code 31 - 37 g/dL [facility] MCV 86.7 fL Invalid Interpretation Code 80 - 100 fL [facility] Monocytes 0.53 K/mcL Invalid Interpretation Code 0.30 - 0.90 [facility] Monocytes/100 leukocytes 7.1 % Invalid Interpretation Code [facility] Neutrophils 4.82 K/mcL Invalid Interpretation Code 1.70 - 7.00 [facility] Neutrophils/100 leukocytes 64.9 % Invalid Interpretation Code [facility] Nucleated erythrocytes/100 erythrocytes 0.0 % Invalid Interpretation Code [facility] Platelet mean volume (PMV) 9.3 fL Invalid Interpretation Code 9 - 15.5 fL [facility] Platelets 244 K/mcL Invalid Interpretation Code 150 - 400 [facility] RDW-CA 14.4 % Invalid Interpretation Code 11.6 - 14.8 % [facility] WBC (Leukocytes) 7.43 K/mcL Invalid Interpretation Code 4.50 - 11.00 [facility] CBC w/ Diffon 09-15-2017 Creatinine The following orders were created for panel order CBC w/ Diff. Procedure Abnormality Status --------- ------ CBC Auto Differential[[id number]] Normal Final result Please view results for these tests on the individual orders. Invalid Interpretation Code [facility] Work Phone: CT HEAD OR BRAIN WITHOUT CON TRASTon 09-15-2017 CT HEAD OR BRAIN WITHOUT CONTRAST EXAMINATION:CT HEAD OR BRAIN WITHOUT CONTRASTHISTORY:Bhavya WILLIAM:None.TECHNIQUE:Noncon trasted CT of the head was performed at 2.5 mm intervals throughout.Dose reduction techniques were achieved by using automated exposure control and/or adjustment of mA and/or kV according to patient size and/or use of iterative reconstruction technique.FINDINGS:The study is limited by motion during acquisition. Overall brain attenuation and morphology appear grossly unremarkable. Ventricular size and configuration are appropriate. No abnormal extraaxial fluid collection or evidence for intracranial hemorrhage is identified. Bones are unremarkable. Some chronic mucosal thickening is noted within the visualized ethmoid air cells.IMPRESSION:Study is limited by motion during acquisition. No gross CT evidence for acute intracranial process is present.BAB/vrsWorkstation ID: [id number] by: ALTON ANAND on SatSep 15, 2017 2:17:10 AM ESTTranscribed by: ADE RAMOS on SatSep 15, 2017 2:33:39 AM ESTFinalized by: ALTON ANAND on SatSep 15, 2017 5:48:35 AM EST Normal [facility] Comment on above: Order Comment: Reaso n for exam?:seisureInjury/Trauma or Illness?:Illness/OtherHow long have you had these symptoms (acute/chronic)?:AcuteType of Exam?:InitialAdditional signs and symptoms?:no Comprehensive Metabolic Pane beto 09-15-2017 Alanine aminotransferase (ALT) 60 U/L Invalid Interpretation Code 14 - 65 U/L [facility] Albumin 3.5 g/dL Invalid Interpretation Code 3.2 - 5.2 g/dL [facility] Alkaline phosphatase (ALP) 57 U/L Invalid Interpretation Code 40 - 150 U/L [facility] Anion gap 10 mmol/L Invalid Interpretation Code 10 - 20 mmol/L [facility] Aspartate aminotransferase (AST) 32 U/L Invalid Interpretation Code 0 - 45 U/L [facility] Bicarbonate (HCO3) 28 mmol/L Invalid Interpretation Code 22 - 34 mmol/L [facility] Bilirubin (total) 0.2 mg/dL Invalid Interpretation Code 0 - 1.3 mg/dL [facility] BUN/Creatinine Ratio 21.3 mg/mg High 10.0 - 20.0 [facility] Calcium 8.4 mg/dL Invalid Interpretation Code 8.4 - 10.2 mg/dL [facility] Chloride 103 mmol/L Invalid Interpretation Code 98 - 108 mmol/L [facility] Creatinine 0.75 mg/dL Invalid Interpretation Code 0.5 - 1.3 mg/dL [facility] eGFR (non-black) 113 mL/min/{1.73_m2} Invalid Interpretation Code >=60 [facility] eGFR (non-black) The eGFR should be u sed for monitoring renal function only and not for medication dosing. Invalid Interpretation Code [facility] Glucose 96 mg/dL Invalid Interpretation Code 65 - 99 mg/dL [facility] Interpretation and review of laboratory results Abnormal Invalid Interpretation Code [facility] Potassium 3.9 mmol/L Invalid Interpretation Code 3.5 - 5.1 mmol/L [facility] Protein 7.6 g/dL Invalid Interpretation Code 6 - 8 g/dL [facility] Sodium 137 mmol/L Invalid Interpretation Code 135 - 145 mmol/L [facility] Urea nitrogen 16 mg/dL Invalid Interpretation Code 8 - 25 mg/dL [facility] Light Blue Topon 09-15-2017 Extra Tube Hold for add-ons. Invalid Interpretation Code [facility] Magnesium Levelon 09-15-2017 Interpretation and review of laboratory results Normal Invalid Interpretation Code [facility] Magnesium 1.9 mg/dL Invalid Interpretation Code 1.6 - 2.4 mg/dL [facility] ACETAMINOPHENon 08-16-2017 Acetaminophen mass conc <2 Low 10- [facility] Comment on above: Result Comment: The above 1 analytes were performed by [facility] [address] [place] [address] Performed By: #### 1 6994, 47701 ####[facility], [address] [place] [address] BASIC METABOLIC PANELon - BUN (urea nitrogen) 15 mg/dL Normal 7-18 [facility] Comment on above: Performed By: #### 1 999, 68043 ####[facility], [address] [place] [address] Calcium 8.8 mg/dL Normal 8.5-10.1 [facility] Comment on above: Result Comment: The above 11 analytes were performed by [facility] [address] [place] [address] Performed By: #### 1 999, 81527 ####[facility], [address] [place] [address] Chloride 104 mmol/L Normal 98-107 [facility] Comment on above: Performed By: #### 1 1000, 27069 ####[facility], [address] [place] [address] CO2 27 mmol/L Normal 21-32 [facility] Comment on above: Performed By: #### 1 999, 45173 ####[facility], [address] [place] [address] Creatinine 0.79 mg/dL Normal 0.60-1.30 [facility] Comment on above: Performed By: #### 1 999, 84270 ####[facility], [address] [place] [address] eGFR (non-black) mL/min/{1.73_m2} Normal [facility] Comment on above: Result Comment: Norm al Reference Range is >60. Performed By: #### 1 999, 96714 ####[facility], [address] [place] [address] Result Comment: AfAm = UNITS=mL/min/1.73 [id number] Reference Ranges is >60.Persistent reduction of eGFR (<60) for 3 months or more defines chronickidney disease, while eGFR <15 indicates renal failure. Patients witheGFR values >= 60 may also have CKD if evidence of persistentproteinuria is present. Gap 11 Normal 5-15 [facility] Comment on above: Performed By: #### 1 999, 76686 ####[facility], [address] [place] [address] Glucose mass conc 107 mg/dL High 74-106 [facility] Comment on above: Performed By: #### 1 1000, 03218 ####[facility], [address] [place] [address] Potassium molar conc 4.1 mmol/L Normal 3.5-5.1 [facility] Comment on above: Performed By: #### 1 999, 23935 ####[facility], [address] [place] [address] Sodium 138 mmol/L Normal 136-145 [facility] Comment on above: Performed By: #### 1 1000, 32239 ####[facility], [address] [place] [address] CBC WITH AUTO DIFFon 12-29-2 017 Basophils Auto #/vol (Bld) 0.00 x1000 Normal [facility] Comment on above: Result Comment: The above 20 analytes were performed by [facility] [address] [place] [address] Performed By: #### 1 1000, 42849, 67190, 64617, 72185, 53869, 98648, 49270, 96231, 23032 ####[facility], [address] [place] [address]#### 75926 ####[facility], [address], [place] [address]HTKOWBLFMVHAHenry County Hospital, [address] [place] [address] Basophils/100 WBC Auto (Bld) 0.5 % Normal 0.0-3.0 [facility] Comment on above: Performed By: #### 1 1000, 34986, 17566, 93584, 22582, 88858, 55088, 04339, 25820, 51148 ####[facility], [address] [place] [address]#### 57103 ####[facility], [address], [place] [address]AGUHXQALTAVRHenry County Hospital, [address] [place] [facility] [place] [address] Eosinophils 0.00 x1000 Normal [facility] Comment on above: Performed By: #### 1 1000, 51509, 98066, 44858, 38601, 34144, 13732, 91537, 27011, 76846 ####[facility], [address] [place] [address]#### 48239 ####[facility], [address], [place] [address]HLLJPJCHYNYE [facility], [address] [place] [facility] [place] [address] Eosinophils/100 leukocytes 0.0 % Normal 0.0-6.0 [facility] Comment on above: Performed By: #### 1 1000, 40794, 93497, 14219, 50595, 75529, 51580, 32639, 01334, 83727 ####[facility], [address] [place] [address]#### 27699 ####[facility], [address], [place] [address]WGFCHUYUEGFC [facility], [address] [place] [address] Erythrocyte distribution width Auto Ratio (RBC) 14.2 % Normal 11.0-15.0 [facility] Comment on above: Performed By: #### 1 1000, 82293, 04299, 01724, 53743, 09763, 97264, 46817, 93857, 57181 ####[facility], [address] [place] [address]#### 48411 ####[facility], [facility] [address], [place] [address]YQQNVGEOSYPS [facility], [address] [place] [address] Hematocrit (HCT) 46.2 % Normal 42.0-52.0 [facility] Comment on above: Performed By: #### 1 1000, 71297, 39083, 80642, 19164, 32468, 82531, 95485, 56402, 84427 ####[facility], [address] [place] [address]#### 62944 ####[facility], [facility] [address], [place] [address]XDBZRHUPNZXRHenry County Hospital, [address] [place] [facility] [place] [address] Hemoglobin mass conc (Bld) 16.1 g/dL Normal 14.0-18.0 [facility] Comment on above: Performed By: #### 1 1000, 30176, 76976, 92674, 92779, 38846, 54736, 26182, 61012, 15288 ####[facility], [address] [place] [facility] [place] [address]#### 01516 ####[facility], [address] [facility], [place] [address]LVEIDSJASAXM [facility], [address] [place] [facility] [place] [address] Lymphocytes 1.40 x1000 Normal [facility] Comment on above: Performed By: #### 1 1000, 47990, 55575, 75365, 69331, 12200, 98111, 64899, 00564, 48195 ####[facility], [address] [place] [address]#### 35588 ####[facility], [address], [place] [address]DWZLUMFNYCAJ [facility], [address] [place] [address] Lymphocytes/100 leukocytes 17.6 % Normal 14.0-47.0 [facility] Comment on above: Performed By: #### 1 1000, 21234, 37080, 85506, 15622, 03427, 20960, 63175, 66108, 36309 ####[facility], [address] [place] [address]#### 44990 ####[facility], [facility] [address], [place] [address]OIRADHAKOGCHBarney Children's Medical Center, [address] [place] [address] MCH 29.9 pg Normal 27-31 [facility] Comment on above: Performed By: #### 1 1000, 00166, 62516, 77531, 76758, 66836, 83311, 98578, 04420, 03207 ####[facility], [address] [place] [address]#### 22953 ####[facility], [facility] [address], [place] [address]OFBHHBSOETITBarney Children's Medical Center, [address] [place] [address] MCHC mass conc (RBC) 34.8 g/dL Normal 32.0-36.0 [facility] Comment on above: Performed By: #### 1 1000, 70134, 97706, 13695, 44395, 81555, 11743, 31596, 87814, 90954 ####[facility], [address] [place] [address]#### 88708 ####[facility], [facility] [address], [place] [address]DXULMEFBYNFK [facility], [address] [facility] [place] [address] MCV 86.1 fL Normal 80.0-100.0 [facility] Comment on above: Performed By: #### 1 1000, 33065, 29426, 98007, 06031, 41639, 42282, 29603, 35539, 12569 ####[facility], [address] [place] [address]#### 02430 ####[facility], [address] [facility] [place] [address]RWKJKSHGRDII [facility], [address] [place] [facility] [place] [address] Monocytes 0.60 x1000 Normal [facility] Comment on above: Performed By: #### 1 1000, 14305, 08074, 83692, 14181, 35676, 89674, 48438, 18332, 78736 ####[facility], [address] [place] [address]#### 84302 ####[facility], [address], [place] [address]HQUTYZETLYNVBarney Children's Medical Center, [address] [place] [facility] [place] [address] Monocytes/100 leukocytes 7.0 % Normal 0.0-10.0 [facility] Comment on above: Performed By: #### 1 1000, 89741, 15648, 70652, 93378, 70531, 67300, 77025, 76588, 16652 ####[facility], [address] [place] [facility] [place] [address]#### 69571 ####[facility], [address] [facility] [place] [address]DPCZCLCUVKRHBarney Children's Medical Center, [address] [facility] [place] [address] Neutrophils 6.00 x1000 Normal [facility] Comment on above: Performed By: #### 1 1000, 87191, 95901, 93006, 41136, 77823, 59992, 25768, 41561, 17302 ####[facility], [address] [place] [facility] [place] [address]#### 72823 ####[facility], [address] [facility] [place] [address]AYIFQBAGASOSHenry County Hospital, [address] [facility] [place] [address] Neutrophils/100 WBC Auto (Bld) 74.9 % Normal 43.0-77.0 [facility] Comment on above: Performed By: #### 1 1000, 52745, 16469, 31290, 24690, 86998, 97484, 62465, 55313, 81906 ####[facility], [address] [place] [address]#### 02924 ####[facility], [address] [facility] [place] [address]EQGJSKFXBSAA [facility], [address] [facility] [place] [address] NRBC% 0.10 % WBC Normal [facility] Comment on above: Performed By: #### 1 1000, 58283, 76964, 32768, 05592, 29354, 33606, 45956, 25906, 63903 ####[facility], [address] [place] [address]#### 13691 ####[facility], [address] [facility] [place] [address]JWKTWRVOSLEF [facility], [address] [facility] [place] [address] Platelets 298 x1000 Normal 144-420 [facility] Comment on above: Performed By: #### 1 1000, 50830, 69188, 98246, 53111, 69377, 79869, 43299, 51766, 64363 ####[facility], [address] [place] [address]#### 50036 ####[facility], [address], [place] [address]EOWXOHFVBGEL [facility], [address] [place] [facility] [place] [address] Red Blood Cell 5.37 MILLION Normal 4.7-6.1 [facility] Comment on above: Performed By: #### 1 1000, 82001, 30677, 50622, 33252, 47669, 92226, 28714, 13915, 70411 ####[facility], [address] [facility] [place] [address]#### 61627 ####[facility], [address] [facility] [place] [address]PXOTMXXHBYMB [facility], [address] [facility] [place] [address] WBC (Leukocytes) 8.0 x1000 Normal 4.8-10.8 [facility] Comment on above: Performed By: #### 1 1000, 18907, 28155, 35710, 47257, 36048, 01031, 48156, 47325, 58109 ####[facility], [address] [place] [address]#### 50826 ####[facility], [address], [place] [address]CXSDGQWDEIUQ - [facility], [address] [place] [address] CT HEAD W/O CONTRASTon 08-16 CT HEAD W/O CONTRAST [place], OHIORADIOLOGY INTERPRETATION Patient Name: RADHIKA SIMONS Med Rec #: [id number] DR: STEPHANI HERRING PA-C Date: 08/16/2017 Age: 42Y 2MLocation: ER : [address]: Francisco STALLWORTH M.D. Acces #: [id number] DR: [facility]ILY DOCTOR Order #: [id number] DR: MD Mitesh GuyExam Description: CT HEAD W/O CONTRAST EXAMINATION:CT OF THE HEAD WITHOUT CONTRAST 08/16/2017 6:39 pmTECHNIQUE:CT of the head was performed without the administration of intravenouscontrast. Dose modulation, iterative reconstruction, and/or weight basedadjustment of the mA/kV was utilized to reduce the radiation dose to as lowas reasonably achievable.COMPARISON:2009HISTORY:SEIZUREFINDINGS: BRAIN/VENTRICLES: There is no acute intracranial hemorrhage, mass effect ormidline shift. No abnormal extra-axial fluid collection. The hyatt-whitedifferentiation is maintained without evidence of an acute infarct. There isno evidence of hydrocephalus.ORBITS: The visualized portion of the orbits demonstrate no acute abnormality.SINUSES: The visualized paranasal sinuses and mastoid air cells demonstrateno acute abnormality.SOFT TISSUES/SKULL: No acute abnormality of the visualized skull or softtissues.IMPRESSION:No acute intracranial abnormality.###JLW/jlwDict: 08/16/2017 6:51:06 PMTran: Rmbjqmv Name: RADHIKA SIMONS RADIOLOGY INTERPRETATION Page 1 of 1 Normal [facility] CULTURE URINEon 08-16-2017 CULTURE URINE Clinical ReportSpecimen/Source: Urine Specimens/Clean Catch UrineCollected: 08/16/2017 18:09 Status: Final Last Updated: 08/18/2017 17:12 Culture Result (Final) 08/17 13:58 No Growth less than 24 Hours 08/18 17:12 No Growth After 24 Hours 08/18 17:12 Culture Final The above 3 analytes were performed by MICROBIOLOGY - [facility] [place] [address] Normal [facility] Comment on above: Performed By: #### 1 1000, 41803 ####[facility], [address] [place] [address] DRUGS OF ABUSE SCREEN-Marcos 08-16-2017 Amphetamines,Urine Positive Critically abnormal Negative [facility] Comment on above: Performed By: #### 1 1000, 61409 ####[facility], [address] [place] [address] Barbiturates,Urine Negative Normal Negative [facility] Comment on above: Performed By: #### 1 1000, 64354 ####[facility], [address] [place] [facility] [place] [address] Benzodiazepines,Uri ne Negative Normal Negative [facility] Comment on above: Performed By: #### 1 1000, 62222 ####[facility], [address] [place] [facility] [place] [address] Cannabinoids,Urine Positive Critically abnormal Negative [facility] Comment on above: Performed By: #### 1 1000, 20375 ####[facility], [address] [place] [facility] [place] [address] Cocaine Metabolite,Urine Negative Normal Negative [facility] Comment on above: Performed By: #### 1 1000, 44087 ####[facility], [address] [place] [address] Comments Normal [facility] Comment on above: Result Comment: Test ing performed without Pkhij-eb-Vwpnbsc. Legal defensibility iscompromised without a Ddytx-ge-Dvuwwui. Suggest resubmission of specimenif legal defensibility is desired.All positive results are unconfirmed. Since false positive results areknown to occur, contact the Laboratory for confirmation testing ifindicated.Cut-Off ValuesAmphetamines- Negative <1000 ng/mLBarbiturates- Negative <200 ng/mLBenzodiazepines- Negative <200 ng/mLCocaine (Metabolite)- Negative <300 ng/mLOpiates- Negative <300 ng/mLPCP- Negative <25 ng/mLCannabinoids (THC)- Negative <50 ng/mLThe above 8 analytes were performed by [facility] [address] [place] [address] Performed By: #### 1 1000, 14994 ####[facility], [address] [place] [address] Opiates, Urine Positive Critically abnormal Negative [facility] Comment on above: Performed By: #### 1 1000, 34991 ####[facility], [address] [place] [address] PCP,Urine Negative Normal Negative [facility] Comment on above: Performed By: #### 1 1000, 66911 ####[facility], [address] [place] [address] ETOH (SERUM)on 08-16-2017 ETOH (Serum) <3 Normal 0-3 [facility] Comment on above: Result Comment: The above 1 analytes were performed by [facility] [address] [place] [address] Performed By: #### 1 1000, 13200 ####[facility], [address] [place], [place] [address] HEPATIC FUNCTIONAL PANELon 1 A/G 0.9 Low 1.20-1.80 [facility] Comment on above: Performed By: #### 1 1000, 26944 ####[facility], [address] [place], [place] [address] Alanine aminotransferase (ALT) 54 U/L Normal 12-78 [facility] Comment on above: Performed By: #### 1 1000, 36455 ####[facility], [address] [place] [address] Albumin 3.7 g/dL Normal 3.4-5.0 [facility] Comment on above: Performed By: #### 1 1000, 25233 ####[facility], [address] [place] [address] Alkaline phosphatase (ALP) 45 U/L Normal 45-117 [facility] Comment on above: Performed By: #### 1 1000, 18571 ####[facility], [address] [place] [address] Aspartate aminotransferase (AST) 32 U/L Normal 15-37 [facility] Comment on above: Performed By: #### 1 1000, 44476 ####[facility], [address] [place] [address] Bilirubin (direct) 0.10 mg/dL Normal 0.0-0.2 [facility] Comment on above: Performed By: #### 1 1000, 54592 ####[facility], [address] [place] [address] Bilirubin (direct) 0.3 mg/dL Normal 0.0-1.1 [facility] Comment on above: Result Comment: The above 10 analytes were performed by [facility] [address] [place] [address] Performed By: #### 1 1000, 97932 ####[facility], [address] [place] [address] Bilirubin Ql (U) 0.4 mg/dL Normal 0.2-1.0 [facility] Comment on above: Performed By: #### 1 1000, 48611 ####[facility], [address] [place] [address] Globulin 4.3 g/dL Normal 1.4-4.7 [facility] Comment on above: Performed By: #### 1 1000, 30358 ####[facility], [address] [place] [address] Protein 8.0 g/dL Normal 6.4-8.6 [facility] Comment on above: Performed By: #### 1 1000, 23940 ####[facility], [address] [place] [address] LACTATEon 08-16-2017 Lactate 0.7 mmol/L Normal 0.4-2.0 [facility] Comment on above: Result Comment: The above 1 analytes were performed by [facility] [address] [place] [address] Performed By: #### 1 1000, 36740, 21084, 83850, 21893, 36535, 61442, 01059, 40264, 13280 ####[facility], [address] [place] [address]#### 58710 ####[facility], [address], [place] [address]JBWUFSYLISGH - [facility], [address] [place] [address] SALICYLATEon 08-16-2017 Salicylate 1.9 mg/dL Low 2.8-20.0 [facility] Comment on above: Result Comment: Ther apeutic range for inflammatory conditions: 15.0-30.0Salicylate toxic levels: >30.0The above 1 analytes were performed by [facility] [address] [place] [address] Performed By: #### 1 1000, 08334 ####[facility], [address] [place] [address] THYROID STIMULATING HORMONEo n 08-16-2017 Thyroid stimulating hormone (TSH) 0.808 uIU/mL Normal 0.358-3.740 [facility] Comment on above: Result Comment: The above 1 analytes were performed by [facility] [address] [place] [address] Performed By: #### 1 1000, 56022 ####[facility], [address] [place] [address] URINALYSIS W/MICROSCOPIC REF ROSA ISELA TO CULTUREon 08-16-2017 Bilirubin,Urine Negative Normal Negative [facility] Comment on above: Performed By: #### 1 1000, 61552 ####[facility], [address] [place] [address] Blood,Urine Negative Normal Negative [facility] Comment on above: Performed By: #### 1 1000, 65960 ####[facility], [facility] [place] [address] Casts,Urine Few Hyaline Casts Normal [facility] Comment on above: Result Comment: The above 16 analytes were performed by [facility] [address] [place] [address] Performed By: #### 1 1000, 96003 ####[facility], [facility] [place] [address] Ketone,Urine Negative Normal Negative [facility] Comment on above: Performed By: #### 1 1000, 74332 ####[facility], [address], [place] [address] Leukocyte,Urine Small Critically abnormal Negative [facility] Comment on above: Performed By: #### 1 999, 50317 ####[facility], [address], [place] [address] Mucus,Urine Moderate Normal [facility] Comment on above: Performed By: #### 1 999, 77940 ####[facility], [address], [place] [address] Nitrite,Urine Negative Normal Negative [facility] Comment on above: Performed By: #### 1 999, 54198 ####[facility], [address], [place] [address] pH of blood 5.5 [pH] Low 6.0-8.0 [facility] Comment on above: Performed By: #### 1 999, 42532 ####[facility], [address], [place] [address] Protein,Urine Qual 10 mg/dL Critically abnormal Negative [facility] Comment on above: Performed By: #### 1 999, 65124 ####[facility], [address], [place] [address] S.G. 1.021 High 1.000-1.020 [facility] Comment on above: Performed By: #### 1 999, 20591 ####[facility], [address], [place] [address] Urine, appearance Clear Normal Clear [facility] Comment on above: Performed By: #### 1 999, 14275 ####[facility], [address], [place] [address] Urine, color Yellow Normal Yellow [facility] Comment on above: Performed By: #### 1 999, 40739 ####[facility], [address], [place] [address] Urine, erythrocytes in sediment by area 1-2 Normal [facility] Comment on above: Performed By: #### 1 999, 55161 ####[facility], [address], [place] [address] Urine, glucose presence Negative Normal Negative [facility] Comment on above: Performed By: #### 1 1000, 65048 ####[facility], [address], [place] [address] Urine, leukocytes in sedmiment 6-10 Normal [facility] Comment on above: Performed By: #### 1 1000, 17455 ####[facility], [address], [place] [address] Urobilinogen,Urine Normal Normal Normal [facility] Comment on above: Performed By: #### 1 1000, 47858 ####[facility], [address], [place] [address] BASIC METABOLIC PANELon 11-2 BUN (urea nitrogen) 16 mg/dL Normal 7-18 [facility] Comment on above: Performed By: #### 1 1000, 89407, 59841, 54277 ####[facility], [address], [place] [address] Calcium 8.5 mg/dL Normal 8.5-10.1 [facility] Comment on above: Result Comment: The above 11 analytes were performed by [facility] [address],[place] [address] Performed By: #### 1 1000, 34867, 35656, 60745 ####[facility], [address], [place] [address] Chloride 106 mmol/L Normal 98-107 [facility] Comment on above: Performed By: #### 1 1000, 79435, 51124, 72519 ####[facility], [address], [place] [address] CO2 24 mmol/L Normal 21-32 [facility] Comment on above: Performed By: #### 1 1000, 45668, 66557, 84967 ####[facility], [address], [place] [address] Creatinine 0.84 mg/dL Normal 0.60-1.30 [facility] Comment on above: Performed By: #### 1 1000, 27454, 85105, 66573 ####[facility], [address], [place] [address] eGFR (non-black) mL/min/{1.73_m2} Normal [facility] Comment on above: Result Comment: AfAm = UNITS=mL/min/1.73 [id number] Reference Ranges is >60.Persistent reduction of eGFR (<60) for 3 months or more defines chronickidney disease, while eGFR <15 indicates renal failure. Patients witheGFR values >= 60 may also have CKD if evidence of persistentproteinuria is present. Performed By: #### 1 1000, 88721, 44658, 33563 ####[facility], [address] [place], [place] [address] Result Comment: Norm al Reference Range is >60. Gap 13 Normal 5-15 [facility] Comment on above: Performed By: #### 1 1000, 22082, 02590, 64011 ####[facility], [address] [place], [place] [address] Glucose mass conc 128 mg/dL High 74-106 [facility] Comment on above: Performed By: #### 1 1000, 79123, 64865, 80431 ####[facility], [address] [place] [address] Potassium molar conc 4.1 mmol/L Normal 3.5-5.1 [facility] Comment on above: Performed By: #### 1 1000, 43318, 26377, 40496 ####[facility], [address] [place], [place] [address] Sodium 139 mmol/L Normal 136-145 [facility] Comment on above: Performed By: #### 1 1000, 18208, 82739, 79896 ####[facility], [address] [place] [address] CBC WITH AUTO DIFFon 11-23-2 017 Basophils Auto #/vol (Bld) 0.00 x1000 Normal [facility] Comment on above: Result Comment: The above 20 analytes were performed by [facility] [address] [place] [address] Performed By: #### 1 1000, 95747, 43993, 06743 ####[facility], [address] [place] [address] Basophils/100 WBC Auto (Bld) 0.4 % Normal 0.0-3.0 [facility] Comment on above: Performed By: #### 1 1000, 07791, 39747, 66094 ####[facility], [address] [place] [address] Eosinophils 0.00 x1000 Normal [facility] Comment on above: Performed By: #### 1 1000, 26181, 31734, 84766 ####[facility], [address] [place] [address] Eosinophils/100 leukocytes 0.0 % Normal 0.0-6.0 [facility] Comment on above: Performed By: #### 1 1000, 37211, 18222, 29377 ####[facility], [address] [place] [address] Erythrocyte distribution width Auto Ratio (RBC) 14.9 % Normal 11.0-15.0 [facility] Comment on above: Performed By: #### 1 1000, 55207, 02545, 12468 ####[facility], [address] [place] [address] Hematocrit (HCT) 47.0 % Normal 42.0-52.0 [facility] Comment on above: Performed By: #### 1 1000, 22021, 15069, 29028 ####[facility], [address] [place] [address] Hemoglobin mass conc (Bld) 16.1 g/dL Normal 14.0-18.0 [facility] Comment on above: Performed By: #### 1 1000, 99494, 75092, 85343 ####[facility], [address] [place] [address] Lymphocytes 1.30 x1000 Normal [facility] Comment on above: Performed By: #### 1 1000, 72208, 79640, 04662 ####[facility], [address] [place] [address] Lymphocytes/100 leukocytes 15.9 % Normal 14.0-47.0 [facility] Comment on above: Performed By: #### 1 1000, 62613, 31617, 94515 ####[facility], [address] [place] [address] MCH 30.1 pg Normal 27.0-31.0 [facility] Comment on above: Performed By: #### 1 1000, 14854, 23972, 91609 ####[facility], [address] [place] [address] MCHC mass conc (RBC) 34.2 g/dL Normal 32.0-36.0 [facility] Comment on above: Performed By: #### 1 1000, 82022, 46952, 30586 ####[facility], [address] [place] [address] MCV 87.9 fL Normal 80.0-100.0 [facility] Comment on above: Performed By: #### 1 1000, 52011, 98612, 70074 ####[facility], [address] [place] [address] Monocytes 0.70 x1000 Normal [facility] Comment on above: Performed By: #### 1 1000, 27771, 75312, 13462 ####[facility], [address] [place] [address] Monocytes/100 leukocytes 8.1 % Normal 0.0-10.0 [facility] Comment on above: Performed By: #### 1 1000, 36907, 07478, 88262 ####[facility], [facility] [place] [address] Neutrophils 6.30 x1000 Normal [facility] Comment on above: Performed By: #### 1 1000, 66485, 37387, 81453 ####[facility], [facility] [place] [address] Neutrophils/100 WBC Auto (Bld) 75.6 % Normal 43.0-77.0 [facility] Comment on above: Performed By: #### 1 1000, 02200, 12679, 32445 ####[facility], [address] [place] [address] NRBC% 0.10 % WBC Normal [facility] Comment on above: Performed By: #### 1 1000, 30416, 86281, 35522 ####[facility], [facility] [place] [address] Platelets 245 x1000 Normal 144-420 [facility] Comment on above: Performed By: #### 1 1000, 17565, 17428, 23645 ####[facility], [address] [place] [address] Red Blood Cell 5.35 MILLION Normal 4.7-6.1 [facility] Comment on above: Performed By: #### 1 1000, 85220, 84082, 02796 ####[facility], [address] [place] [address] WBC (Leukocytes) 8.3 x1000 Normal 4.8-10.8 [facility] Comment on above: Performed By: #### 1 1000, 66216, 31785, 98406 ####[facility], [address] [place] [address] CHEST AP PORTABLEon 07-11-20 17 [facility]ST [facility]ABLE [facility] Patient Name: RADHIKA SIMONS Med Rec #: [id number] DR: TILA LOUISE D.O. Date: 07/11/2017 Age: 42Y 0MLocation: ER : [address]: Francisco STALLWORTH M.D. Acces #: [id number] DR: [facility] Order #: [id number] DR: MD Debby VargheseExam Description: CHEST AP PORTABLE EXAMINATION:SINGLE VIEW OF THE CHEST07/11/2017 2:47 pmCOMPARISON:09/19/2016, 04/15/2011HISTORY:CHEST PAINFINDINGS:No lines or tubes. Normal cardiomediastinal silhouette. Basilar atelectasis.The lungs are otherwise clear without focal consolidation or pleuraleffusion. No suspicious pulmonary nodules. No pulmonary edema. Nopneumothorax.No acute osseous abnormality.IMPRESSION:1. No acute cardiopulmonary disease.2. Basilar atelectasis.###SDG/dxrDict: 07/11/2017 2:51:51 PMTran: 07/11/2017 2:55:15 PMJob#: [id number] Name: RADHIKA SIMONS RADIOLOGY INTERPRETATION Page 1 of 1 Normal [facility] ETOH (SERUM)on 07-11-2017 ETOH (Serum) <3 Normal 0-3 [facility] Comment on above: Result Comment: The above 1 analytes were performed by [facility] [address] [place] [address] Performed By: #### 1 1000, 91567, 53786, 73860 ####[facility], [address] [place] [address] TROPONINon 07-11-2017 Troponin I.cardiac mass conc NORMAL Normal [facility] Comment on above: Result Comment: The above 2 analytes were performed by [facility] [address] [place] [address] Performed By: #### 1 1000, 08773, 83228, 26752 ####[facility], [address] [place] [address] Troponin I.cardiac mass conc ng/mL Low 0.015-0.045 [facility] Comment on above: Result Comment: Chaparrita ents with acute coronary syndromes can have troponin levels between0.1 and 0.6 ng/ml.AHA and ACC recommend repeating the troponin to aid in riskstratification.W.H.O definition of acute myocardial infarction is a troponin of 0.6-1.5ng/ml. Performed By: #### 1 1000, 98762, 35199, 38347 ####[facility], [address] [place] [address] BASIC METABOLIC PANELon 08-2 BUN (urea nitrogen) 11 mg/dL Normal 7-18 [facility] Comment on above: Performed By: #### 1 1000, 23576 ####[facility], [address] [place] [address] Calcium 8.8 mg/dL Normal 8.5-10.1 [facility] Comment on above: Result Comment: The above 11 analytes were performed by [facility] [address] [place] [address] Performed By: #### 1 1000, 94909 ####[facility], [address] [place] [address] Chloride 102 mmol/L Normal 98-107 [facility] Comment on above: Performed By: #### 1 1000, 74838 ####[facility], [address] [place] [address] CO2 31 mmol/L Normal 21-32 [facility] Comment on above: Performed By: #### 1 1000, 70613 ####[facility], [address] [place] [address] Creatinine 0.83 mg/dL Normal 0.60-1.30 [facility] Comment on above: Performed By: #### 1 999, 81617 ####[facility], [address] [place] [address] eGFR (non-black) mL/min/{1.73_m2} Normal [facility] Comment on above: Result Comment: Norm al Reference Range is >60. Performed By: #### 1 999, 46987 ####[facility], [address] [place], [place] [address] Result Comment: AfAm = UNITS=mL/min/1.73 [id number] Reference Ranges is >60.Persistent reduction of eGFR (<60) for 3 months or more defines chronickidney disease, while eGFR <15 indicates renal failure. Patients witheGFR values >= 60 may also have CKD if evidence of persistentproteinuria is present. Gap 7 Normal 5-15 [facility] Comment on above: Performed By: #### 1 999, 77012 ####[facility], [address] [place] [address] Glucose mass conc 97 mg/dL Normal 74-106 [facility] Comment on above: Performed By: #### 1 999, 07249 ####[facility], [address] [place] [address] Potassium molar conc 4.0 mmol/L Normal 3.5-5.1 [facility] Comment on above: Performed By: #### 1 999, 30803 ####[facility], [address] [place] [address] Sodium 136 mmol/L Normal 136-145 [facility] Comment on above: Performed By: #### 1 1000, 93070 ####[facility], [address] [place] [address] CBC WITH AUTO DIFFon 017 Basophils Auto #/vol (Bld) 0.10 x1000 Normal [facility] Comment on above: Result Comment: The above 20 analytes were performed by [facility] [address] [place] [address] Performed By: #### 1 999, 75832 ####[facility], [address] [place] [address] Basophils/100 WBC Auto (Bld) 0.6 % Normal 0.0-3.0 [facility] Comment on above: Performed By: #### 1 1000, 76743 ####[facility], [address] [place] [address] Eosinophils 0.00 x1000 Normal [facility] Comment on above: Performed By: #### 1 999, 31507 ####[facility], [address] [place] [address] Eosinophils/100 leukocytes 0.2 % Normal 0.0-6.0 [facility] Comment on above: Performed By: #### 1 999, 60748 ####[facility], [address] [place] [address] Erythrocyte distribution width Auto Ratio (RBC) 14.0 % Normal 11.0-15.0 [facility] Comment on above: Performed By: #### 1 999, 26618 ####[facility], [address] [place] [address] Hematocrit (HCT) 43.9 % Normal 42.0-52.0 [facility] Comment on above: Performed By: #### 1 999, 07110 ####[facility], [facility] [place] [address] Hemoglobin mass conc (Bld) 15.0 g/dL Normal 14.0-18.0 [facility] Comment on above: Performed By: #### 1 999, 70067 ####[facility], [facility] [place] [address] Lymphocytes 1.80 x1000 Normal [facility] Comment on above: Performed By: #### 1 1000, 25617 ####[facility], [facility] [place] [address] Lymphocytes/100 leukocytes 15.9 % Normal 14.0-47.0 [facility] Comment on above: Performed By: #### 1 999, 87970 ####[facility], [address] [place] [address] MCH 29.6 pg Normal 27.0-31.0 [facility] Comment on above: Performed By: #### 1 1000, 47268 ####[facility], [address] [facility] [place] [address] MCHC mass conc (RBC) 34.3 g/dL Normal 32.0-36.0 [facility] Comment on above: Performed By: #### 1 1000, 75688 ####[facility], [address] [place] [address] MCV 86.4 fL Normal 80.0-100.0 [facility] Comment on above: Performed By: #### 1 1000, 59653 ####[facility], [address] [place] [address] Monocytes 1.10 x1000 Normal [facility] Comment on above: Performed By: #### 1 1000, 50326 ####[facility], [address] [place] [address] Monocytes/100 leukocytes 9.9 % Normal 0.0-10.0 [facility] Comment on above: Performed By: #### 1 1000, 49626 ####[facility], [address] [place] [address] Neutrophils 8.30 x1000 Normal [facility] Comment on above: Performed By: #### 1 1000, [id number] ####[facility], [address] [place] [address] Neutrophils/100 WBC Auto (Bld) 73.4 % Normal 43.0-77.0 [facility] Comment on above: Performed By: #### 1 1000, [id number] ####[facility], [address] [place] [address] NRBC% 0.00 % WBC Normal [facility] Comment on above: Performed By: #### 1 1000, [id number] ####[facility], [address] [place] [address] Platelets 285 x1000 Normal 144-420 [facility] Comment on above: Performed By: #### 1 1000, [id number] ####[facility], [address] [place] [address] Red Blood Cell 5.08 MILLION Normal 4.7-6.1 [facility] Comment on above: Performed By: #### 1 1000, [id number] ####[facility], [address] [place] [address] WBC (Leukocytes) 11.3 x1000 High 4.8-10.8 [facility] Comment on above: Performed By: #### 1 1000, [id number] ####[facility], [address] [place] [address] CULTURE WOUNDon 04-10-2017 CULTURE WOUND Clinical ReportSpecimen/Source: Swab/Right Lower LegCollected: 04/10/2017 07:37 Status: Final Last Updated: 04/12/2017 09:07 Culture Result (Final) 04/12 09:07 Culture Final Gram Stain (Final) 04/10 14:30 Few Epithelial Cells 04/10 14:30 Moderate White Blood Cells 04/10 14:30 Few Red Blood Cells 04/10 14:30 Few Gram Positive Cocci Organism 1 (Final) 04/11 09:51 Moderate 04/12 05:14 Methicillin Resistant Staphylococcus aureus 04/12 09:07 Initiate appropriate isolation precautions per facility protocol Organism 1 Methicillin Resistant Staphylococcus aureus ZEINAB (mcg/ml) Amoxicillin/CA >4/2 R Amp/Sulbactam 16/8 R Cefazolin 8 R Ciprofloxacin <=1 S Clindamycin <=0.5 S Daptomycin 1 S Erythromycin >4 R Gentamicin <=4 S Levofloxacin <=1 S Linezolid 2 S Moxifloxacin <=0.5 S Oxacillin >2 R Rifampin <=1 S Tetracycline <=4 S Trimeth/Sulfa <=0.5/9.5 S Vancomycin 2 S The above 24 analytes were performed by MICROBIOLOG[facility] - [facility] [place] [address] Normal [facility] Comment on above: Performed By: #### 6 [id number] ####[facility], [address], [place] [id number] - [facility], [address] [place] [address] Vital Signs Date Time Vital Sign Value Performing Clinician Facility 03-21-2023 14:43-0400 Blood Pressure Location [facility] 03-21-2023 14:43-0400 Body temperature 97.34 [degF] Grayson SALAM [facility] 03-21-2023 14:43-0400 Diastolic blood pressure 78 mm[Hg] Grayson SALAM [facility] 03-21-2023 14:43-0400 Heart rate 90 /min Grayson SALAM [facility] 03-21-2023 14:43-0400 Respiratory rate 16 /min Grayson SALAM [facility] 03-21-2023 14:43-0400 Systolic blood pressure 113 mm[Hg] Grayson SALAM [facility] 09-15-2017 01:00-0500 BP Diastolic 74 mm[Hg] Ty Sigrist [facility] Work Phone: 09-15-2017 01:00-0500 BP Systolic 119 mm[Hg] Ty Sigrist [facility] Work Phone: 09-15-2017 01:00-0500 Pulse (Heart Rate) 87 /min Ty Sigrist [facility] Work Phone: 09-15-2017 01:00-0500 Pulse Oximetry 98 % Ty Sigrist [facility] Work Phone: 09-14-2017 21:37-0500 BMI (Body Mass Index) 27.71 kg/m2 Ty Sigrist [facility] Work Phone: 09-14-2017 21:37-0500 Body Temperature 98.29 [degF] Ty Sigrist [facility] Work Phone: 09-14-2017 21:37-0500 Height 185.4 cm Ty Sigrist [employer] Work Phone: 09-14-2017 21:37-0500 Respiratory Rate 18 /min Ty Sigrist [facility] Work Phone: 09-14-2017 21:37-0500 Weight 95.25 kg Ty Siggiovanna [facility] Work Phone: Encounters Encounter Date Encounter Type Care Provider Facility Start: 08-07-2023 ambulatory Nnamdi Spicer acility:[facility] Start: 05-16-2023 End: 05-17-2023 ambulatory Deacon Diane Facility:[facility] Start: 04-04-2023 End: 04-05-2023 ambulatory Deacon AlvarezMundo Diane Facility: [facility] Start: 03-21-2023 End: 03-22-2023 ambulatory Deacon Singh Morgan Facility:[facility] Start: 03-21-2023 End: 03-30-2023 Pre-admission assessment [facility] Start: 03-21-2023 End: 03-21-2023 Patient encounter procedure Graysonkari JACOME [facility] Start: 03-11-2023 ambulatory Deacon Morgan Facility:[facility] Start: 03-07-2023 End: 03-08-2023 ambulatory Deacon AlvarezMundo Morgan Facility:[facility] Start: 03-07-2023 End: 03-07-2023 Lab Drop off Deacno E. Morgan [facility] Start: 03-05-2023 ambulatory Deacon Diane Facility:[facility] Start: 01-28-2023 End: 01-29-2023 ambulatory Andry GERING Facility:[facility] Start: 04-21-2019 Patient encounter procedure DOCTOR AMANDEEP Facility:[facility] Start: 07-21-2018 End: 07-21-2018 Patient encounter procedure SHANNON BARRIOS Facility:[facility] Start: 11-02-2017 End: 11-02-2017 Emergency department patient visit PHYSICIAN [facility] Start: 09-14-2017 End: 09-15-2017 Emergency department patient visit TY PEGUERO [facility] Start: 09-14-2017 End: 09-15-2017 Emergency department patient visit Ty Peguero Work Phone: [facility] Start: 08-16-2017 End: 08-16-2017 Ambulatory [facility] Start: 07-11-2017 End: 07-11-2017 Ambulatory [facility] Start: 04-10-2017 End: 04-10-2017 Ambulatory [facility] Start: 04-08-2017 End: 04-08-2017 Ambulatory [facility] Procedures Date Procedure Procedure Detail Performing Clinician 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 Deacon Diane Excision of cyst Deacon Diane Comment on above: back of head pilonidal Plan of Treatment Date Care Activity Detail Author Start: 04-19-2017 Influenza vaccination SEQUENTI AL INFLUENZA VACCINE (#1) [facility] Work Phone: Start: 1975 Tetanus vaccination TETANUS EVERY 10 YR [facility] Work Phone: CT Head Or Brain Wit hout Contrast CT Head Or Brain Without Contrast ELIZABET 09/15/2017 12:07 AM [facility] Work Phone: Gold Top Gold Top STAT 09/14/2017 10:12 PM [facility] Work Phone: [place] STA T 09/14/2017 10:12 PM [facility] Work Phone: Immunizations Immunization Date Immunization Notes Care Provider Fa alfonso 07-26-2022 influenza virus vaccine, unspecified formulation [facility] 07-06-2021 SARS-CoV-2 (COVID-19 ) mRNA-1273 vaccine Deacon Diane [facility] Comment on above: Result Comment: 2022: TPV11 12-07-2020 SARS-CoV-2 (COVID-19 ) mRNA-1273 vaccine Deacon Diane [facility] 11-09-2020 SARS-CoV-2 (COVID-19 ) mRNA-1273 vaccine Deacon Diane [facility] 02-03-2019 hepatitis A vaccine, adult dosage Deacon Diane [facility] 08-19-2011 pneumococcal conjuga te vaccine, 13 valent Deacon Diane [facility] 05-07-2011 influenza virus vaccine, unspecified formulation Deacon Diane [facility] Payers Date Payer Category Payer Private Health Insurance [id number] 1975 Unknown [id number] 2.16.8 [id number] 1975 Unknown [id number] 2.16.84 [id number] 1975 Unknown [id number] 2.16.84 [id number] 1975 Unknown [id number] 2.16.8 [id number] 1975 Unknown [id number] 2.16.8 [id number] 1975 Unknown [id number] 2.16.8 [id number] 1975 Unknown [id number] 2.16.8 [id number] 1975 Unknown [id number] 2.16.8 [id number] 1975 Unknown [id number] 2.16.8 [id number] 1959 Medicare [id number] 1959 Self-pay Unknown [id number] [id number] Unknown [id number] 2.16.8 [id number] Social History Date Type Detail Facility Start: 09-14-2017 Tobacco smoking stat us [facility]IS [facility] Work [facility]: Sex Assigned At Not on file [facility] Work Phone: Start: 03-07-2023 End: 03-21-2023 Tobacco smoking status Heavy tobacco smoker (finding) [facility] Sex Assigned At Male [facility] Functional Status Date Assessment Result Facility 03-21-2023 Functional Status N/A [facility] Evaluation + Plan note Note Date & Type Note Facility Evaluation + Plan note Future Appointments Appointment Date:04/04/2023 08:40:00 AM Scheduled Provider:Deacon Diane MD Location:[facility] Appointment Type:FM Open Diagnostic Tests PendingHCV Antibody RFX to Quant PCR 03/07/23 [facility] Evaluation + Plan note Laboratory Note Date & Type Note Facility Evaluation + Plan note Future Appointments Appointment Date:03/29/2023 09:00:00 AM Scheduled Provider: Location:[facility] Appointment Type:Surgery FT Appointment Date:04/04/2023 08:40:00 AM Scheduled Provider:Deacon Diane MD Location:[facility] Appointment Type:FM Open Future Scheduled TestsLab Miscellaneous-LC 03/21/23HCV RNA by PCR, Qn Rfx Pam 03/21/23HIV Screen 4th Generation wRfx 03/21/23Hepatitis B Surface Antibody 03/21/23 [facility] Evaluation + Plan note Laboratory Note Date & Type Note Facility Evaluation + Plan note Future Appointments Appointment Date:04/04/2023 08:40:00 AM Scheduled Provider:Deacon Diane MD Location:[facility] Appointment Type: Open Future Scheduled TestsLab Miscellaneous-LC 03/21/23HCV RNA by PCR, Qn Rfx Pam 03/21/23HIV Screen 4th Generation wRfx 03/21/23Hepatitis B Surface Antibody 03/21/23 [facility] Hospital course Narrative Note Date & Type Note Facility Hospital course Narrative No data available for this section [facility] Hospital Discharge instructions Note Date & Type Note Facility Hospital Discharge instructions No data available for this section [facility] Progress note Note Date & Type Note Facility Progress note No data available for this section [facility] Assessments Diagnosis Generalized seizure (HCC) - Primary Other convulsions Summary Purpose Family History No Family History Records FoundNo Family History Records FoundNo Family History Records FoundNo Family History Records FoundNo Family History Records FoundNo Family History Records FoundNo Family History Records Found Advance Directives No Advanced Directives Records FoundNo Advanced Directives Records FoundNo Advanced Directives Records FoundNo Advanced Directives Records FoundNo Advanced Directives Records FoundNo Advanced Directives Records FoundNo Advanced Directives Records Found Additional Source Comments ED Notes - Deacon Fan RN - 09/15/2017 2:04 AM ESTED Notes - Deacon Fan RN - 09/15/2017 1:54 AM ESTED Update Note - Ferdinand Mak Jr., DO - 09/15/2017 1:27 AM EST Miscellaneous Notes (unrecog nized section and content) Pt dc'd with instructions, no new problems/complaints voiced. Pt ambulatory with Collection Advisor, gait steady Pt lying on cart, resp easy 18/min, pulse ox =100% room air. Pt having some slight jerking movement just after he was told he was going to be discharged, Dr Mak to bed side. Standing quietly at bed side pt stopped with the jerking movement. Pt opened his eyes and was able to have a conversation and correctly answer questions, [place] police stenographer and this RN also present Patient came in secondary to seizure episode. Patient apparently has a long history of seizure disorder but has not been compliant on his medication. Awaiting CT scan for disposition. Radiology did read CT scan as negative. Patient has been acting appropriate here after his initial postictal presentation. Patient will be discharged home. Pt to ct scan per alex, [place] Collection Advisor with pt Pt remains alert/oriented, resp with good effort, skin w/d/p. Monitor sinus rhythm Formatting of this note may be different from the original. ED PROVIDER NOTE [facility] EM[facility] NAME: Radhika Simons AGE: 42 y.o. : 1975 VISIT DATE: 09/14/2017 CSN: [id number] PCP: Physician No Chief Complaint Patient presents with Seizures Patient brought to ED by police after having a generalized seizure in the back of the squad car shortly after being arrested during a traffic stop. Patient had drug paraphernalia in his car and admits to daily heroin use. He states that he has a history of seizures and is supposed to be taking Dilantin however he has been out of it for a month because he cannot afford it. He does continue to use heroin daily however but denies any other drug use or alcohol use today. He denies any recent illness. History provided by: Patient and police Seizures Seizure activity on arrival: no Seizure type: Grand mal Initial focality: None Episode characteristics: disorientation, generalized shaking and unresponsiveness Episode characteristics: no tongue biting Postictal symptoms: confusion and somnolence Severity: Moderate Duration: 2 minutes Timing: Once Number of seizures this episode: 1 Progression: Resolved Context: drug use and medical non-compliance Recent head injury: No recent head injuries CARTOGRAPHY TECHNICIAN treatment: None History of seizures: yes Past Medical History: Diagnosis Date ADHD Bipolar 1 disorder (HCC) Manic Depression (HCC) Seizure (HCC) Past Surgical History: Procedure Laterality Date PILONIDAL CYST DRAINAGE History reviewed. No pertinent family history. Social History Social History Marital status: Single Spouse name: N/A Number of children: N/A Years of education: N/A Occupational History Not on file. Social History Main Topics Smoking status: Current Every Day Smoker Smokeless tobacco: Never Used Alcohol use No Drug use: Yes Types: Other, Methamphetamines Comment: HEROIN Sexual activity: Not on file Other Topics Concern Not on file Social History Narrative No narrative on file Previous Medications No medications on file Allergies Allergen Reactions Seroquel [Quetiapine] Palpitations Review of Systems Constitutional: Negative for fever. HENT: Negative for sore throat and voice change. Eyes: Negative for visual disturbance. Respiratory: Negative for cough and shortness of breath. Cardiovascular: Negative for chest pain. Gastrointestinal: Negative for nausea and vomiting. Genitourinary: Negative for dysuria. Musculoskeletal: Negative for myalgias. Skin: Negative for rash. Neurological: Positive for seizures. Negative for weakness and numbness. Positives and pertinent negatives as per HPI. All other systems were reviewed and are negative. Patient Vitals for the past 24 hrs: BP Temp Temp src Pulse Resp SpO2 Height Weight 09/14/17 2300 117/78 - - 78 - 99 % - - 09/14/17 2230 111/76 - - 94 - 98 % - - 09/14/17 2137 127/82 98.3 ?F (36.8 ?C) Temporal (!) 108 18 98 % 6' 1 95.3 kg (210 lb) Physical Exam Constitutional: He is oriented to person, place, and time. He appears well- developed and well-nourished. HENT: Head: Normocephalic and atraumatic. Mouth/Throat: Oropharynx is clear and moist. Eyes: EOM are normal. Pupils are equal, round, and reactive to light. Neck: Normal range of motion. Neck supple. No JVD present. Cardiovascular: Normal rate, regular rhythm, normal heart sounds and intact distal pulses. Pulmonary/Chest: Effort normal and breath sounds normal. He has no wheezes. Abdominal: Soft. There is no tenderness. Musculoskeletal: Normal range of motion. He exhibits no edema. Neurological: He is alert and oriented to person, place, and time. He has normal reflexes. No cranial nerve deficit. Skin: Skin is warm and dry. No rash noted. Nursing note and vitals reviewed. Laboratory & Radiographic Imaging (if done): Results for orders placed or performed during the hospital encounter of 09/14/17 Comprehensive Metabolic Panel Result Value Ref Range Sodium 137 135 - 145 mmol/L Potassium 3.9 3.5 - 5.1 mmol/L Chloride 103 98 - 108 mmol/L Bicarbonate 28 22 - 34 mmol/L Anion Gap 10 10 - 20 mmol/L Glucose 96 65 - 99 mg/dL BUN 16 8 - 25 mg/dL Creatinine 0.75 0.50 - 1.30 mg/dL eGFR 113 >=60 mL/min/1.73 m2 BUN/Creatinine Ratio 21.3 (H) 10.0 - 20.0 Total Protein 7.6 6.0 - 8.0 g/dL Albumin 3.5 3.2 - 5.2 g/dL Calcium 8.4 8.4 - 10.2 mg/dL Alkaline Phosphatase 57 40 - 150 U/L AST 32 0 - 45 U/L Total Bilirubin 0.2 0.0 - 1.3 mg/dL ALT 60 14 - 65 U/L Magnesium Level Result Value Ref Range Magnesium 1.9 1.6 - 2.4 mg/dL CBC Auto Differential Result Value Ref Range WBC 7.43 4.50 - 11.00 K/mcL RBC 4.97 4.50 - 5.90 M/mcL Hemoglobin 14.9 13.5 - 17.5 g/dL Hematocrit 43.1 41.0 - 53.0 % MCV 86.7 80.0 - 100.0 fL MCH 30.0 26.0 - 34.0 pg MCHC 34.6 31.0 - 37.0 g/dL Platelets 244 150 - 400 K/mcL RDW - CV 14.4 11.6 - 14.8 % MPV 9.3 9.0 - 15.5 fL Neutrophils 64.9 % Lymphocytes 26.5 % Monocytes 7.1 % Eosinophils 0.8 % Basophils 0.7 % Neutrophils Abs 4.82 1.70 - 7.00 K/mcL Lymphocytes Abs 1.97 0.90 - 4.00 K/mcL Monocytes Abs 0.53 0.30 - 0.90 K/mcL Eosinophils Abs 0.06 0.00 - 0.50 K/mcL Basophils Abs 0.05 0.00 - 0.30 K/mcL Nucleated RBC 0.0 % Nucleated RBC Abs 0.00 0.00 - 0.00 K/mcL CT Head Or Brain Without Contrast (Results Pending) Procedures MDM ED Course Patient brought to ED for evaluation of generalized seizure that occurred shortly after arrest. He does have a history of some seizure and is supposed to be on Dilantin but has not taken it for at least a month. Labs were unremarkable, tox screen is pending but patient readily admits to heroin use. He was given loading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
[2023-11-05 08:12] LABS: Bilirubin Urine NEGATIVE (NEGATIVE); Blood Urine NEGATIVE (NEGATIVE); Clarity Urine CLEAR (CLEAR); Color Urine DK. YELLOW (YELLOW); Glucose Urine UA NEGATIVE (NEGATIVE); Ketones Urine TRACE mg/dL (NEGATIVE); Leukocyte Esterase Urine NEGATIVE (NEGATIVE); Nitrite Urine NEGATIVE (NEGATIVE); Protein Urine NEGATIVE (NEG/TRACE); Specific Gravity Urine 1.025 (1.005-1.025); pH Urine 6.5 (5.0-9.0)
[2023-11-05] MEDS: KETOROLAC TROMETHAMINE 60 MG/2 ML VIAL IM (08:14)
[2023-11-05 08:26] LABS: RBC Urine NONE SEEN #/HPF (0-2); WBC Urine 0-2 #/HPF (NONE SEEN)
[2023-11-05 08:27] LABS: Bacteria Urine NONE SEEN #/HPF (NONE SEEN); Mucus Urine LARGE (NONE SEEN); Squamous Epithelial Cell Urine FEW #/LPF (NONE/RARE)
== END 2023-11-05 08:52 | disposition home or self-care (01) ==
PROVIDERS: Emergency Provider Emergency Medicine; PCP Family Medicine
DX: R10.9 Unspecified abdominal pain (principal); Z87.442 Personal history of urinary calculi; Z79.899 Other long term (current) drug therapy; F17.210 Nicotine dependence, cigarettes, uncomplicated
CPT/HCPCS: 74176; 81001; 96372; 99284